=== PATIENT | female | born 1990 | race Caucasian/White ===

== ENCOUNTER 2021-11-18 10:08 | Emergency (ER) | payer MEDICAID, SELFPAY ==
--- NOTE | ~2021-11-18 | US_ITS ---
EXAMINATION: US ABDOMEN LIMITED CLINICAL INFORMATION: Right upper quadrant pain, history of gallstones. COMPARISON: 08/07/2017 abdominal ultrasound. TECHNIQUE: Real-time imaging of the right upper quadrant abdominal viscera. FINDINGS: PANCREAS: Visualized portions unremarkable. LIVER: Diffuse increased hepatic echotexture without focal abnormality. GALLBLADDER: Small echogenic gallstones measuring up to 1.4 cm. No mural thickening or pericholecystic fluid. COMMON BILE DUCT: Normal in caliber measuring 0.3 cm in diameter. RIGHT KIDNEY: 11.7 cm. Unremarkable. FREE FLUID: None. US/US abdomen limited IMPRESSION: 1. Hepatic steatosis appears to represent interval increase from the 2018 study. 2. Cholelithiasis without evidence for acute cholecystitis.
[2021-11-18 10:14] VITALS: BP 126/71; PULSE 95; RESP 16; TEMP 36.6; O2SAT 98; BMI 45.3
[2021-11-18 10:29] LABS: MANUAL DIFF FLAG NO
[2021-11-18 10:30] LABS: Basophils Percent Auto 0.4 % (0-2); Eosinophils Absolute Auto 0.1 X10*3/uL (0.0-0.4); Eosinophils Percent Auto 1.7 % (0-4); Hematocrit 37.1 % (37.0-47.0); Hemoglobin 12.1 g/dl (12.0-16.0); Imm Gran Abs Auto 0.02 X10*3/uL (0.00-0.03); Imm Gran Pct Auto 0.2 % (0.0-0.4); Lymphocytes Absolute Auto 1.1 X10*3/uL (1.2-4.9); Lymphocytes Percent Auto 13.3 % (20-40); Mean Corpuscular HGB Conc 32.6 g/dl (31.0-35.0); Mean Corpuscular Hemoglobin 28.5 pg (27.0-33.0); Mean Corpuscular Volume 87.5 fL (80.0-98.0); Mean Platelet Volume 9.4 fL (9.4-12.3); Monocytes Absolute Auto 0.4 X10*3/uL (0.1-1.2); Monocytes Percent Auto 5.2 % (2-11); Neutrophils Absolute Auto 6.4 x10*3/uL (2.0-8.3); Neutrophils Percent Auto 79.2 % (45-73); Platelet Count 358 X10*3/uL (160-400); Red Blood Count 4.24 X10*6/uL (4.20-5.50); Red Cell Distribution Width 13.5 % (11.0-16.0); White Blood Count 8.1 X10*3/uL (4.8-10.8)
[2021-11-18 10:46] LABS: Alanine Aminotransferase 14 U/L (0-31); Albumin Level 3.9 g/dL (3.5-5.0); Alkaline Phosphatase 66 U/L (39-117); Anion Gap 14 (12-20); Aspartate Amino Transferase 12 U/L (5-31); Bilirubin Direct < 0.2 mg/dL (0.0-0.5); Bilirubin Total 0.3 mg/dL (0.0-1.0); Blood Urea Nitrogen 9 mg/dL (9-16); Calcium 9.3 mg/dL (8.4-10.2); Carbon Dioxide 25 mmol/L (22-29); Chloride 106 mmol/L (96-108); Creatinine Clr Calc Pharmacy 128.4; Estimated Glomerular Filt Rate > 60; Glucose Random 94 mg/dL (60-115); Potassium 4.3 mmol/L (3.3-5.1); Sodium 141 mmol/L (135-145); Total Protein 6.6 g/dL (6.5-8.0)
== END 2021-11-18 14:08 | disposition left against medical advice (07) ==
PROVIDERS: Emergency Provider Emergency Medicine
DX: K80.80 Other cholelithiasis without obstruction (principal); Z79.899 Other long term (current) drug therapy
CPT/HCPCS: 36415; 76705; 80048; 80076; 85025; 99281; 99284

== ENCOUNTER 2021-11-19 16:34 | Emergency (ER) | payer MEDICAID, SELFPAY ==
[2021-11-19 17:26] VITALS: BP 133/79; PULSE 88; RESP 18; TEMP 36.1; O2SAT 100; BMI 45.3
== END 2021-11-19 20:28 | disposition left against medical advice (07) ==
LOC: HO.ED 20:22
PROVIDERS: Emergency Provider Emergency Medicine
DX: R10.12 Left upper quadrant pain (principal)
CPT/HCPCS: 99281

== ENCOUNTER 2022-08-26 14:39 | Emergency (ER) | payer MEDICAID, SELFPAY ==
--- NOTE | ~2022-08-26 | US_ITS ---
EXAMINATION: US FIRST TRIMESTER CLINICAL INFORMATION: Abdominal pain LMP: Not known Beta-hCG: Unknown COMPARISON: None available for current . TECHNIQUE: Transabdominal imaging was performed. FINDINGS: UTERUS AND INTRAUTERINE GESTATIONAL SAC: There is a single intrauterine gestational sac. CROWN-RUMP LENGTH (CRL) : 0.42 cm, estimated age 6 weeks and 1 day, estimated date of confinement is 04/20/2023 YOLK SAC: Identified HEART MOTION: 112 BPM. SUBCHORIONIC HEMORRHAGE: None OVARIES: Right: Normal corpus luteal cyst 2 x 2 x 2.3 cm. Left: Normal FREE FLUID: None OTHER FINDINGS: None US/US OB <= 14 weeks fetus IMPRESSION: 1. Single live intrauterine . 2. Estimated age 6 weeks and 1 day.
--- NOTE | ~2022-08-26 | US_ITS ---
EXAMINATION: US ABDOMEN LIMITED CLINICAL INFORMATION: Epigastric right upper quadrant pain. COMPARISON: None available. TECHNIQUE: Real-time imaging of the right upper quadrant abdominal viscera. FINDINGS: PANCREAS: Normal. LIVER: Normal. The liver is normal in size. The liver contour is normal. Parenchymal echogenicity is normal. No focal hepatic lesion. There is no intrahepatic biliary duct dilatation seen. GALLBLADDER: There are stones in the gallbladder. The gallbladder is physiologically distended without evidence of sludge, polyps, wall thickening or pericholecystic fluid. No evidence of cholecystitis. No gallbladder wall thickening or tenderness. No pericholecystic fluid. COMMON BILE DUCT: Normal in caliber measuring 0.3 cm in diameter. RIGHT KIDNEY: Normal. No hydronephrosis. No renal calculi or focal parenchymal lesions. The kidney measures 10.8 cm in maximum dimension. FREE FLUID: None. US/US abdomen limited IMPRESSION: Cholelithiasis without ultrasound evidence of acute cholecystitis.
[2022-08-26 15:17] VITALS: BP 109/58; PULSE 75; RESP 18; TEMP 36.2; O2SAT 100; BMI 34.4
--- NOTE | 2022-08-26 15:17 | ED_ITS ---
HPI - General Chief complaint: Abdominal Pain Stated complaint: knots/ tightness in abd / Time Seen by Provider: 08/26/22 19:09 Source: patient Mode of arrival: ambulatory Limitations: no limitations History of Present Illness HPI Narrative: Patient comes in the emergency room complaining of epigastric and right upper quadrant pain, nausea, no vomiting. Patient states that she took a home preg veronika test and it was positive. Patient is a approximately 6 weeks of gestational age. Patient denies any fever chills, no URI or UTI symptoms. Patient denies vaginal bleeding, spotting or fluid leakage Related Data Previous Rx's Medication Instructions Recorded nitrofurantoin 100 mg PO Q12H 7 days #14 caps 08/26/22 monohydrate/macrocrystals 100 mg capsule (Macrobid) ondansetron HCl 4 mg tablet 4 mg PO Q6H PRN nausea and 08/26/22 vomiting #14 tabs Allergies Allergy/AdvReac Type Severity Reaction Status Date / Time penicillin V Allergy Unknown hives Verified 08/26/22 15:20 Seafood Allergy Unknown anaphylaxis Uncoded 03/09/19 00:00 Review of Systems Review of Systems: Constitutional : No Weight loss, No Fever, No Chills, No Night Sweats, No Fatigue, No Malaise ENT/Mouth : No Hearing loss, No Ear Pain, No Nasal Congestion, No Sinus Pain, No Hoarseness, No sore throat, No Rhinorrhea, No Swallowing Difficulty Eyes: No Eye Pain, No Swelling, No Redness, No Foreign Body, No Discharge, No Vision Changes Cardiovascular : No Chest Pain, No SOB, No Dyspnea on Exertion, No Orthopnea, No Edema, No Palpitations Respiratory : No Cough, No Sputum, No Wheezing, No Smoke Exposure, No Dyspnea Gastrointestinal : Complaining of nausea, No Vomiting, No Diarrhea, No Constipation, complaining of epigastric and right upper quadrant pain, No Hematochezia, No Melena Genitourinary : no irregular bleeding, No Dysuria, No Urinary Frequency, No Hematuria, No Urinary Incontinence, No Urgency, No Flank Pain, No Urinary Flow Changes, No Hesitancy Musculoskeletal : No joint pain, No Myalgias, No Joint Swelling Skin : No Skin Lesions, No rash Neuro : No Weakness, No Numbness, No Paresthesias, No Loss of Consciousness, No Dizziness, No Headache Psych : No Anxiety/Panic, No Depression, No SI/HI/AH/VH, No Social Issues, Heme/Lymph: No Bruising, No Bleeding,No Lymphadenopathy Endocrine : No Polyuria, No Polydipsia, No Temperature Intolerance [facility] Social History Social History Advance Directives: No Advance Directives Information Provided: No Physical Exam Vital Signs: Vital Signs: Last Vital Signs Temp 98.9 F 08/26/22 17:40 Pulse 60 08/26/22 18:46 Resp 16 08/26/22 18:46 BP 117/73 08/26/22 18:46 Pulse Ox 98 08/26/22 18:46 O2 Del Method Room Air 08/26/22 18:46 BMI result Body Mass Index 34.4 Const: Other: Appearance: Alert. Oriented X3. No acute distress. Eyes: Pupils equal, round and reactive to light. ENT: Pharynx normal. Neck: Normal inspection. Neck supple. No lymph nodes noted. No crepitus CVS: Normal heart rate and rhythm. Pulses normal. Normal S1 and S2 Respiratory: No respiratory distress. Breath sounds normal. No Wheezing. No rales Abdomen: Soft and nontender. No rigidity. No distention. Skin: Skin warm and dry. Normal skin color. Normal skin turgor. Extremities: No lower extremity edema. No Lacerations. No Rash Neuro: Oriented X 3. No motor deficit. No sensory deficit. Moving all extremities. No slurred speech. CN 2 through 12 grossly intact Psych: calm, cooperative, normal affect Course Course Course Narrative: RME: 32yo F w/PMHx c/o upper abdominal cramping x today w/nausea, admits to +home test on 08/14/22. LMP ?beginning of June. Denies vomiting, vaginal bleeding/discharge, fever Abdomen soft + epigastric/RUQ tenderness, no rebound or guarding Labs, UA, pelvic and limited abdomen ultrasound ordered Full HPI, ROS and PE to be performed by primary ED provider. Medical Decision Making Medical Decision Making [facility] Narrative: -when patient arrived, acute cholecystitis versus ectopic versus panc reatitis was considered, therefore admission was considered. -patient reported to have abdominal pain, epigastric and right upper quadrant. When I did the physical exam on the patient, patient did not have any abdominal pain at all. -ultrasound of the gallbladder negative for acute cholecystitis. - ultrasound shows a single live intrauterine at an estimated age of 6 weeks and 1 day -I reviewed patient's labs, patient has a UTI. -patient has a life intrauterine pregnancies equivalent of 6 weeks and 1 day, abdominal ultrasound negative for acute cholecystitis Differential Diagnosis Differential Diagnoses: The differential diagnosis associated with the presentation includes (Cholecystitis, pancreatitis, ectopic , UTI) Admission/Observation Consideration of admission/observation: Escalation of care including admission/observation considered Lab Data MDM Lab Attestation statement: I reviewed the patient's lab results. (Patient's urinalysis positive for UTI, negative for liver inflammation) 08/26/22 15:48 08/26/22 15:48 Labs: Lab Results 08/26/22 08/26/22 08/26/22 Range/Units 15:48 15:48 15:48 WBC 6.4 (4.8-10.8) X10*3/uL RBC 4.23 (4.20-5.50) X10*6/uL Hgb 12.6 (12.0-16.0) g/dl Hct 37.5 (37.0-47.0) % MCV 88.7 (80.0-98.0) fL MCH 29.8 (27.0-33.0) pg MCHC 33.6 (31.0-35.0) g/dl RDW 13.8 (11.0-16.0) % Plt Count 259 D (160-400) X10*3/uL MPV 10.5 (9.4-12.3) fL Immature Gran % (Auto) 0.3 (0.0-0.4) % Neut % (Auto) 74.1 H (45-73) % Lymph % (Auto) 18.6 L (20-40) % [place] % (Auto) 5.5 (2-11) % Eos % (Auto) 1.2 (0-4) % Baso % (Auto) 0.3 (0-2) % Lymph # (Auto) 1.2 (1.2-4.9) X10*3/uL [place] # (Auto) 0.4 (0.1-1.2) X10*3/uL Eos # (Auto) 0.1 (0.0-0.4) X10*3/uL Baso # (Auto) 0.0 (0.0-0.2) X10*3/uL Abs Immat Gran (auto) 0.02 (0.00-0.03) X10*3/uL Absolute Neuts (auto) 4.8 (2.0-8.3) x10*3/uL Absolute Nucleated RBC 0.000 (0.0-0.012) X10*3/uL Nucleated RBC % (auto) 0.0 (0.0-0.2) /100WBC Sodium 137 (135-145) mmol/L Potassium 4.0 (3.3-5.1) mmol/L Chloride 108 (96-108) mmol/L Carbon Dioxide 22 (22-29) mmol/L Anion Gap 11 L (12-20) BUN 6 L (9-16) mg/dL Creatinine 0.69 (0.5-1.4) mg/dL Estim Creat Clear Calc 111.9 Estimated GFR > 60 Random Glucose 103 (60-115) mg/dL Calcium 9.6 (8.4-10.2) mg/dL Magnesium 1.8 (1.6-2.6) mg/dL Total Bilirubin 0.9 (0.0-1.0) mg/dL Direct Bilirubin 0.3 (0.0-0.5) mg/dL AST 13 (5-31) U/L ALT 9 (0-31) U/L Alkaline Phosphatase 44 (39-117) U/L Total Protein 6.4 L (6.5-8.0) g/dL Albumin 3.8 (3.5-5.0) g/dL Lipase 44 (8-78) U/L Beta HCG, Quant 81635 mIU/mL Urine Color Urine Appearance Urine pH (5.0-9.0) Ur Specific [place] (1.005-1.025) Urine Protein (Neg-Trace) mg/dL Urine Glucose (UA) (Negative) mg/dL Urine Ketones (Negative) mg/dL Urine Blood (Negative) Urine Nitrite (Negative) Ur Leukocyte Esterase (Negative) Urine RBC (0-2) /HPF Urine WBC (0-5) /HPF Ur Squamous Epith Cells (0-2) /HPF Urine Bacteria (None Seen) Hyaline Casts (0-2) /LPF Urine Yeast Urine Test (NEGATIVE) 08/26/22 08/26/22 Range/Units 15:48 15:48 WBC (4.8-10.8) X10*3/uL RBC (4.20-5.50) X10*6/uL Hgb (12.0-16.0) g/dl Hct (37.0-47.0) % MCV (80.0-98.0) fL MCH (27.0-33.0) pg MCHC (31.0-35.0) g/dl RDW (11.0-16.0) % Plt Count (160-400) X10*3/uL MPV (9.4-12.3) fL Immature Gran % (Auto) (0.0-0.4) % Neut % (Auto) (45-73) % Lymph % (Auto) (20-40) % [place] % (Auto) (2-11) % Eos % (Auto) (0-4) % Baso % (Auto) (0-2) % Lymph # (Auto) (1.2-4.9) X10*3/uL [place] # (Auto) (0.1-1.2) X10*3/uL Eos # (Auto) (0.0-0.4) X10*3/uL Baso # (Auto) (0.0-0.2) X10*3/uL Abs Immat Gran (auto) (0.00-0.03) X10*3/uL Absolute Neuts (auto) (2.0-8.3) x10*3/uL Absolute Nucleated RBC (0.0-0.012) X10*3/uL Nucleated RBC % (auto) (0.0-0.2) /100WBC Sodium (135-145) mmol/L Potassium (3.3-5.1) mmol/L Chloride (96-108) mmol/L Carbon Dioxide (22-29) mmol/L Anion Gap (12-20) BUN (9-16) mg/dL Creatinine (0.5-1.4) mg/dL Estim Creat Clear Calc Estimated GFR Random Glucose (60-115) mg/dL Calcium (8.4-10.2) mg/dL Magnesium (1.6-2.6) mg/dL Total Bilirubin (0.0-1.0) mg/dL Direct Bilirubin (0.0-0.5) mg/dL AST (5-31) U/L ALT (0-31) U/L Alkaline Phosphatase (39-117) U/L Total Protein (6.5-8.0) g/dL Albumin (3.5-5.0) g/dL Lipase (8-78) U/L Beta HCG, Quant mIU/mL Urine Color Yellow Urine Appearance Cloudy Urine pH 5.5 (5.0-9.0) Ur Specific [place] 1.025 (1.005-1.025) Urine Protein Trace (Neg-Trace) mg/dL Urine Glucose (UA) Negative (Negative) mg/dL Urine Ketones 80 (Negative) mg/dL Urine Blood Trace H (Negative) Urine Nitrite Negative (Negative) Ur Leukocyte Esterase Large (3+) H (Negative) Urine RBC 3-5 H (0-2) /HPF Urine WBC >50 H (0-5) /HPF Ur Squamous Epith Cells >20 (0-2) /HPF Urine Bacteria 4+ (None Seen) Hyaline Casts 3-5 (0-2) /LPF Urine Yeast Present Urine Test POSITIVE H (NEGATIVE) Independent Interpretation I performed an independent interpretation of an: Ultrasound (My interpretation of pelvic ultrasound: Intrauterine present) Radiology Impression Discussion of test interpretation with radiology: I have reviewed the radiologist's reading. Radiologist Impression: FINDINGS:? UTERUS AND INTRAUTERINE GESTATIONAL SAC: There is a single intrauterine gestational sac. CROWN-RUMP LENGTH (CRL) : 0.42 cm, estimated age 6 weeks and 1 day, estimated date of confinement is 04/20/2023 YOLK SAC: Identified HEART MOTION: 112 BPM. SUBCHORIONIC HEMORRHAGE: None OVARIES: Right: Normal corpus luteal cyst 2 x 2 x 2.3 cm. Left: Normal FREE FLUID: None OTHER FINDINGS: None US/US OB <= 14 weeks fetus IMPRESSION: 1. Single live intrauterine . ? 2. Estimated age 6 weeks and 1 day. FINDINGS: PANCREAS: Normal. LIVER: Normal. The liver is normal in size. The liver contour is normal. Parenchymal echogenicity is normal. No focal hepatic lesion. There is no intrahepatic biliary duct dilatation seen. GALLBLADDER: There are stones in the gallbladder. The gallbladder is physiologically distended without evidence of sludge, polyps, wall thickening or pericholecystic fluid. No evidence of cholecystitis. No gallbladder wall thickening or tenderness. No pericholecystic fluid. COMMON BILE DUCT: Normal in caliber measuring 0.3 cm in diameter. RIGHT KIDNEY: Normal. No hydronephrosis. No renal calculi or focal parenchymal lesions. The kidney measures 10.8 cm in maximum dimension. FREE FLUID: None. US/US abdomen limited IMPRESSION: ? Cholelithiasis without ultrasound evidence of acute cholecystitis. Critical Care Time Critical Care Time Critical Care Time: No Discharge Plan Discharge Clinical Impression: Urinary tract infection during , Abdominal pain, Nausea Patient Disposition: Home, Self-Care Instructions: Abdominal Pain (ED) Additional Instructions: Please follow-up with your primary care physician tomorrow. If you have any worsening or new symptoms, please return to the emergency room or call 911 Prescriptions: New nitrofurantoin monohyd/m-cryst [Macrobid] 100 mg capsule 100 mg PO Q12H 7 Days Qty: 14 0RF Rx Instructions: must administer with a meal/food ondansetron HCl 4 mg tablet 4 mg PO Q6H PRN (Reason: nausea and vomiting) Qty: 14 0RF Interventions: ED Discharge Assessment Last Done: 08/26/22 17:09
--- NOTE | 2022-08-26 15:54 | MHC.EDTECH ---
PATIENT BLOOD DRAWN AND SENT TO LAB .
[2022-08-26 15:55] LABS: MANUAL DIFF FLAG NO
[2022-08-26 15:56] LABS: Basophils Percent Auto 0.3 % (0-2); Eosinophils Absolute Auto 0.1 X10*3/uL (0.0-0.4); Eosinophils Percent Auto 1.2 % (0-4); Hematocrit 37.5 % (37.0-47.0); Hemoglobin 12.6 g/dl (12.0-16.0); Imm Gran Abs Auto 0.02 X10*3/uL (0.00-0.03); Imm Gran Pct Auto 0.3 % (0.0-0.4); Lymphocytes Absolute Auto 1.2 X10*3/uL (1.2-4.9); Lymphocytes Percent Auto 18.6 % (20-40); Mean Corpuscular HGB Conc 33.6 g/dl (31.0-35.0); Mean Corpuscular Hemoglobin 29.8 pg (27.0-33.0); Mean Corpuscular Volume 88.7 fL (80.0-98.0); Mean Platelet Volume 10.5 fL (9.4-12.3); Monocytes Absolute Auto 0.4 X10*3/uL (0.1-1.2); Monocytes Percent Auto 5.5 % (2-11); Neutrophils Absolute Auto 4.8 x10*3/uL (2.0-8.3); Neutrophils Percent Auto 74.1 % (45-73); Platelet Count 259 X10*3/uL (160-400); Red Blood Count 4.23 X10*6/uL (4.20-5.50); Red Cell Distribution Width 13.8 % (11.0-16.0); White Blood Count 6.4 X10*3/uL (4.8-10.8)
[2022-08-26 15:57] LABS: Appearance Urine Cloudy; Color Urine Yellow; Glucose Urine UA Negative (Negative); Leukocyte Esterase Urine Large (3+) (Negative); Nitrite Urine Negative (Negative); PH 5.5 (5.0-9.0); Specific Gravity - Urine 1.025 (1.005-1.025); UMIC TRIGGER UACC YES; UPreg QC Valid YES; Urine Blood Trace (Negative); Urine Ketones 80 mg/dL (Negative); Urine Pregnancy POSITIVE (NEGATIVE); Urine Protein Trace mg/dL (Neg-Trace)
[2022-08-26 16:06] LABS: Bacteria Urine 4+ (None Seen); Squamous Epithelial Cell Urine >20 /HPF (0-2); UACC Culture Trigger YES; WBC Urine >50 /HPF (0-5)
[2022-08-26 16:12] LABS: Alanine Aminotransferase 9 U/L (0-31); Albumin Level 3.8 g/dL (3.5-5.0); Alkaline Phosphatase 44 U/L (39-117); Anion Gap 11 (12-20); Aspartate Amino Transferase 13 U/L (5-31); Bilirubin Direct 0.3 mg/dL (0.0-0.5); Bilirubin Total 0.9 mg/dL (0.0-1.0); Blood Urea Nitrogen 6 mg/dL (9-16); Calcium 9.6 mg/dL (8.4-10.2); Carbon Dioxide 22 mmol/L (22-29); Chloride 108 mmol/L (96-108); Creatinine Clr Calc Pharmacy 111.9; Estimated Glomerular Filt Rate > 60; Glucose Random 103 mg/dL (60-115); Lipase 44 U/L (8-78); Magnesium 1.8 mg/dL (1.6-2.6); Sodium 137 mmol/L (135-145); Total Protein 6.4 g/dL (6.5-8.0)
[2022-08-26 16:57] LABS: HCG Quantitative 38643 mIU/mL
[2022-08-26 17:12] VITALS: BP 113/61; PULSE 71; RESP 18; O2SAT 99
[2022-08-26 17:40] VITALS: BP 104/61; PULSE 59; RESP 15; TEMP 37.2; O2SAT 99
[2022-08-26 18:46] VITALS: BP 117/73; PULSE 60; RESP 16; O2SAT 98
== END 2022-08-26 19:39 | disposition home or self-care (01) ==
PROVIDERS: Physician Assistant; Emergency Provider Emergency Medicine
DX: O23.41 Unspecified infection of urinary tract in pregnancy, first trimester (principal); R11.0 Nausea; O26.891 Other specified pregnancy related conditions, first trimester; Z3A.00 Weeks of gestation of pregnancy not specified
CPT/HCPCS: 36415; 76705; 76801; 80048; 80076; 81001; 81025; 83690; 83735; 84702; 85025; 87086; 99284

== ENCOUNTER 2023-02-01 21:32 | Emergency (ER) | payer MEDICAID, SELFPAY ==
[2023-02-01 21:41] VITALS: BMI 32.1
[2023-02-01 21:45] VITALS: O2SAT 98
--- NOTE | 2023-02-01 21:54 | ED_ITS ---
HPI - URI/Sore Throat General Chief Complaint: Upper Respiratory Symptoms Stated Complaint: CONGESTION, PAIN WITH DEEP BREATH, 29 WEEKS PREG Time Seen by Provider: 02/01/23 21:48 Source: patient Mode of arrival: EMS Limitations: no limitations History of Present Illness HPI Narrative: Patient is a 32-year-old female is a , reportedly 29 weeks with estimated due date 04/17/2023 followed by [facility], who presents to the emergency department via EMS for evaluation of upper respiratory symptoms. Reports symptom onset yesterday including nasal congestion, cough, fatigue. Denies fevers, chills, headache, neck pain, neck stiffness, chest pain, shortness of breath, difficulty breathing, nausea, vomiting, abdominal pain. Denies decreased movement, denies related concerns, denies discharge or vaginal bleeding. Related Data Previous Rx's Medication Instructions Recorded nitrofurantoin 100 mg PO Q12H 7 days #14 caps 08/26/22 monohydrate/macrocrystals 100 mg capsule (Macrobid) ondansetron HCl 4 mg tablet 4 mg PO Q6H PRN nausea and 08/26/22 vomiting #14 tabs Allergies Allergy/AdvReac Type Severity Reaction Status Date / Time penicillin V Allergy Unknown hives Verified 02/01/23 21:43 Seafood Allergy Unknown anaphylaxis Uncoded 02/01/23 21:43 Review of Systems Review of Systems: Yes all other systems are reviewed and are negative [facility] Past Medical History Attestation statement: The following information was validated with the patient. Source: old records reviewed Social History Social History Smoked in Last 30 Days: No Use of substances other than those prescribed or required for medical reasons: No Advance Directives: No Advance Directives Information Provided: No Physical Exam Vital Signs: Vital Signs: Last Vital Signs Temp 98.2 F 02/01/23 22:13 Pulse 97 02/01/23 22:14 Resp 18 02/01/23 22:14 BP 103/60 02/01/23 22:14 Pulse Ox 98 02/01/23 22:14 O2 Del Method Room Air 02/01/23 22:14 BMI result Body Mass Index 32.1 Appearance: Alert.?Oriented to person, place and time. No acute distress.?Normal affect. Eyes: Pupils equal, round and reactive to light.? ENT: Pharynx normal.?? Neck: Normal inspection.? Neck supple.??No cervical lymphadenopathy CVS: Heart sounds normal. Normal heart rate and rhythm.? Pulses normal.?? Respiratory: No respiratory distress.? Lung sounds clear to auscultation bilaterally?? Abdomen: Soft and non-tender. Normoactive bowel sounds. Skin: Skin warm and dry.? Normal skin color.? ?? Extremities: No lower extremity edema.? No calf ttp? Neuro: Moves all extremities spontaneously. Sensation intact bilaterally. CN II- XII intact. No focal neuro deficits. Ambulates with normal steady gait. Medical Decision Making Medical Decision Making [facility] Narrative: Patient is a 32-year-old female currently 29 weeks with no reported past medical history presenting to the emergency department for evaluation of URI symptoms. COVID-19/influenza/RSV testing is negative. At this time history and physical exam not consistent with ACS/PE/pneumonia. Would defer chest x-ray imaging as she is currently , and clinically have low suspicion for pneumonia. Well-appearing, nontoxic, afebrile, no tachycardia or tachypnea/hypoxia. Speaking clear full sentences, ambulatory with steady gait. Discussed conservative treatment including rest, hydration, Tylenol as needed for fever and body aches, saline nasal spray, humidifier, tea with honey. Advised to follow-up with primary care provider as needed, OB as scheduled, di scussed reasons to return back to the emergency department. All questions were answered. Patient discharged home in stable condition. Differential Diagnosis Differential Diagnoses: The differential diagnosis associated with the presentation includes (As noted above) Lab Data [facility] Lab Attestation statement: I reviewed the patient's lab results. (As noted above) Labs: Lab Results 02/01/23 Range/Units 21:47 Influenza Type A (PCR) NEGATIVE (Negative) Influenza Type B (PCR) NEGATIVE (Negative) RSV RNA Qual (PCR) NEGATIVE (Negative) SARS-CoV-2 RNA (RT-PCR) NEGATIVE (Negative) Independent Historian Clinical information obtained from an independent historian. History obtained from or confirmed by: Spouse and EMS External Record Review External record reviewed: Prior outpatient labs Tests considered The following testing was considered but not selected: CXR as noted above Prescription Management I considered prescription management with: Antibiotic (Suspect viral etiology, no indication for antibiotics at this time) Discharge Plan Discharge Clinical Impression: Upper respiratory infection Patient Disposition: Home, Self-Care Instructions: Upper Respiratory Infection (ED) Additional Instructions: Be sure to rest, stay well hydrated drinking plenty of fluids, eat small frequent meals. Tylenol can be used as needed for fever/pain. Saline nasal spray, humidifier may be helpful for nasal congestion. You may return to the emergency department with any new or worsening symptoms or concerns. Follow-up with your primary care provider as needed. Prescriptions: No Action nitrofurantoin monohyd/m-cryst [Macrobid] 100 mg capsule 100 mg PO Q12H 7 Days Qty: 14 0RF Rx Instructions: must administer with a meal/food ondansetron HCl 4 mg tablet 4 mg PO Q6H PRN (Reason: nausea and vomiting) Qty: 14 0RF Referrals: Physician,Unknown J [Primary Care Provider] -
[2023-02-01 22:13] VITALS: BP 103/60; PULSE 81; RESP 18; TEMP 36.8; O2SAT 98
[2023-02-01 22:14] VITALS: BP 103/60; PULSE 97; RESP 18; O2SAT 98
[2023-02-01 22:29] LABS: Influenza A PCR NEGATIVE (Negative); Influenza B PCR NEGATIVE (Negative); Resp Syncy Virus RNA Qual PCR NEGATIVE (Negative); SARS COV2 PCR INHOUSE NEGATIVE (Negative)
[2023-02-01 23:04] VITALS: BP 114/66; PULSE 82; RESP 16; O2SAT 98
== END 2023-02-01 23:05 | disposition home or self-care (01) ==
PROVIDERS: Physician Assistant Medical; Emergency Provider Emergency Medicine
DX: O99.513 Diseases of the respiratory system complicating pregnancy, third trimester (principal); J06.9 Acute upper respiratory infection, unspecified; Z3A.29 29 weeks gestation of pregnancy; Z20.822 Contact with and (suspected) exposure to COVID-19; Z20.828 Contact with and (suspected) exposure to other viral communicable diseases
CPT/HCPCS: 0241U; 99283; 99284

== ENCOUNTER 2023-05-13 01:35 | Emergency (ER) | payer SELFPAY ==
--- NOTE | ~2023-05-13 | XR_ITS ---
EXAMINATION: XR ABDOMEN KUB CLINICAL INDICATION: Constipation. COMPARISON: None available. TECHNIQUE: AP view of the abdomen. FINDINGS: The bowel gas pattern is normal with no evidence of ileus or obstruction. There is retained stool. No unusual soft tissue calcifications are noted. The bones are unremarkable. XR/XR KUB IMPRESSION: 1. Nonobstructive bowel gas pattern. 2. Retained stool.
[2023-05-13 01:43] VITALS: BP 140/77; PULSE 94; RESP 17; TEMP 36.6; O2SAT 99; BMI 26.7
[2023-05-13 04:34] VITALS: BP 132/87; PULSE 64; RESP 16; TEMP 36.9; O2SAT 100
--- NOTE | 2023-05-13 05:18 | ED.ABDPAIN ---
HPI - Abdominal Pain General Chief Complaint: Abdominal Pain Stated Complaint: Constipated Time Seen by Provider: 05/13/23 05:18 Source: patient Mode of arrival: ambulatory Limitations: no limitations History of Present Illness HPI narrative: Patient comes here for 3 days of constipation took MiraLax once only without much relief history of similar problem last year when she was admitted. No vomiting not on any narcotics Related Data Previous Rx's Medication Instructions Recorded nitrofurantoin 100 mg PO Q12H 7 days #14 caps 08/26/22 monohydrate/macrocrystals 100 mg capsule (Macrobid) ondansetron HCl 4 mg tablet 4 mg PO Q6H PRN nausea and 08/26/22 vomiting #14 tabs bisacodyl 5 mg tablet,delayed 10 mg (2 x 5 mg) PO BEDTIME PRN 05/13/23 release (Dulcolax (bisacodyl)) constipation #30 tabs Allergies Allergy/AdvReac Type Severity Reaction Status Date / Time penicillin V Allergy Unknown hives Verified 02/01/23 21:43 Seafood Allergy Unknown anaphylaxis Uncoded 02/01/23 21:43 Review of Systems Review of Systems Yes all other systems are reviewed and are negative [facility] Social History Social History Smoked in Last 30 Days: Yes Use of substances other than those prescribed or required for medical reasons: Yes Substance Use Type: Marijuana Advance Directives: No Advance Directives Information Provided: Yes Patient : No Physical Exam ED Vital Signs: Vital Signs - 24 hr 05/13/23 01:43 05/13/23 04:34 Temperature 97.8 F 98.5 F Pulse Rate 94 64 Respiratory Rate 17 16 Blood Pressure 140/77 H 132/87 Pulse Oximetry 99 100 Oxygen Delivery Method Room Air Room Air BMI result Body Mass Index 26.7 Appearance: Alert. Oriented X3. No acute distress. ENT: Pharynx normal. Oral Mucosa moist Neck: Normal inspection. Neck supple. CVS: Normal heart rate and rhythm. Pulses normal. Respiratory: No respiratory distress. Equal air entry bilateral, no wheezing/rales/rhonchi Abdomen: Soft and nontender. Bowel sounds are present, no mass palpable, no CVA tenderness Skin: Skin warm and dry. Normal skin color. Normal skin turgor. Extremities: No lower extremity edema. Neuro: Oriented X 3. Medical Decision Making Independent Interpretation I performed an independent interpretation of an: Plain X-Ray Radiology Impression Discussion of test interpretation with radiology: I have reviewed the radiologist's reading. Medications Administered Discontinued Medications Generic Name Dose Route Start Last Admin Trade Name Freq PRN Reason Stop Dose Admin Bisacodyl 10 mg 05/13/23 05:18 05/13/23 06:01 Bisacodyl 5 Mg Tablet.Dr PO 05/13/23 05:19 10 mg ONCE ONE Administration Dicyclomine HCl 20 mg 05/13/23 06:08 05/13/23 06:19 Dicyclomine Hcl 10 Mg Capsule PO 05/13/23 06:09 20 mg ONCE ONE Administration Magnesium Hydroxide 30 ml 05/13/23 05:18 05/13/23 06:01 Milk Of Magnesia 30 Ml Oral.Susp PO 05/13/23 05:19 30 ml ONCE ONE Administration Discharge Plan Discharge Clinical Impression: Constipation Patient Disposition: Home, Self-Care Instructions: Constipation (ED) Additional Instructions: Drink plenty of fluid Take MiraLax and Dulcolax as prescribed for severe constipation Follow-up with PCP Prescriptions: New bisacodyl [Dulcolax (bisacodyl)] 5 mg tablet,delayed release (DR/EC) 10 mg PO BEDTIME PRN (Reason: constipation) Qty: 30 0RF No Action nitrofurantoin monohyd/m-cryst [Macrobid] 100 mg capsule 100 mg PO Q12H 7 Days Qty: 14 0RF Rx Instructions: must administer with a meal/food ondansetron HCl 4 mg tablet 4 mg PO Q6H PRN (Reason: nausea and vomiting) Qty: 14 0RF Interventions: ED Discharge Assessment Last Done: 05/13/23 06:46 Discharge Date/Time: 05/13/23 06:47
[2023-05-13] MEDS: bisacodyL 5 MG TABLET.DR 10 MG PO (06:01)
[2023-05-13] MEDS: Milk of Magnesia 30 ML ORAL.SUSP PO (06:01)
[2023-05-13] MEDS: Dicyclomine HCl 10 MG CAPSULE 20 MG PO (06:19)
--- NOTE | 2023-05-13 06:43 | PC.NURSE ---
pt medicated according to apr. pt requested wheelchair transport to waiting room to await ride home. pt provided with discharge packet. pt verbalized understanding of discharge plan
== END 2023-05-13 06:47 | disposition home or self-care (01) ==
PROVIDERS: Emergency Provider Internal Medicine; PCP Internal Medicine
DX: K59.00 Constipation, unspecified (principal); R10.30 Lower abdominal pain, unspecified
CPT/HCPCS: 74018; 99283; 99284

== ENCOUNTER 2023-06-28 13:39 | Emergency (ER) | payer SELFPAY ==
[2023-06-28 14:00] VITALS: BP 131/71; PULSE 86; RESP 16; TEMP 36.1; O2SAT 99; BMI 25.6
--- NOTE | 2023-06-28 14:00 | ED_ITS ---
HPI - General Adult General Chief complaint: Dental/Oral Stated complaint: Dental pain/R ear pain Related Data Previous Rx's ?Medication ?Instructions ?Recorded nitrofurantoin 100 mg PO Q12H 7 days #14 caps 08/26/22 monohydrate/macrocrystals 100 mg capsule (Macrobid) ondansetron HCl 4 mg tablet 4 mg PO Q6H PRN nausea and 08/26/22 vomiting #14 tabs bisacodyl 5 mg tablet,delayed 10 mg (2 x 5 mg) PO BEDTIME PRN 05/13/23 release (Dulcolax (bisacodyl)) constipation #30 tabs acetaminophen 325 mg tablet 650 mg (2 x 325 mg) PO Q6H PRN 08/02/23 (Tylenol) pain #60 tabs acetaminophen 325 mg tablet 650 mg (2 x 325 mg) PO Q6H PRN 08/07/23 (Tylenol) fever or pain #60 tabs Allergies Allergy/AdvReac Type Severity Reaction Status Date / Time penicillin V Allergy Unknown hives Verified 08/06/23 23:02 Seafood Allergy Unknown anaphylaxis Uncoded 02/01/23 21:43 [facility] Past Medical History Medical History No pertinent past medical history Social History Social History Smoked in Last 30 Days: No Substance Use Type: Marijuana Advance Directives: No Advance Directives Information Provided: Yes Do you have a plan to hurt others: No Plan Physical Exam ED Vital Signs: BMI result Body Mass Index 25.6 Course Course Course Narrative: This is an RME: Additional HPI, ROS, PE not included below will be deferred to primary provider. 32 yo f presents with r sided dental pain and ear pain. Denies recent dental procedures. Discharge Plan Discharge Clinical Impression: Eloped from emergency department Patient Disposition: Left W/O Completing Treatment Prescriptions: No Action nitrofurantoin monohyd/m-cryst [Macrobid] 100 mg capsule 100 mg PO Q12H 7 Days Qty: 14 0RF Rx Instructions: must administer with a meal/food ondansetron HCl 4 mg tablet 4 mg PO Q6H PRN (Reason: nausea and vomiting) Qty: 14 0RF bisacodyl [Dulcolax (bisacodyl)] 5 mg tablet,delayed release (DR/EC) 10 mg PO BEDTIME PRN (Reason: constipation) Qty: 30 0RF acetaminophen [Tylenol] 325 mg tablet 650 mg PO Q6H PRN (Reason: pain) Qty: 60 0RF acetaminophen [Tylenol] 325 mg tablet 650 mg PO Q6H PRN (Reason: fever or pain) Qty: 60 0RF Discharge Date/Time: 06/28/23 20:25
== END 2023-06-28 20:25 | disposition left against medical advice (07) ==
LOC: HO.ED 20:27
PROVIDERS: Emergency Provider Emergency Medicine; PCP Internal Medicine
DX: K08.89 Other specified disorders of teeth and supporting structures (principal); H92.01 Otalgia, right ear
CPT/HCPCS: 99281

== ENCOUNTER 2023-08-02 15:26 | Emergency (ER) | payer MEDICAID, SELFPAY ==
--- NOTE | ~2023-08-02 | US_ITS ---
EXAMINATION: US OBSTETRICAL ULTRASOUND CLINICAL INFORMATION: Pelvic pain COMPARISON: None available. LMP: 06/17/2023. Gestational age by maternal dates is 6 weeks 4 days. Estimated date of delivery by maternal dates is 03/23/2024. TECHNIQUE: Routine transabdominal and transvaginal imaging of pelvis is performed. FINDINGS: There is a single intrauterine gestational sac with visible yolk sac, embryo/fetus, and cardiac activity. There is no significant subchorionic hemorrhage or hematoma. HR: 129 beats per minute. CRL (crown rump length): 0.65 cm (6 weeks 4 days +/- 4 days). LATRICE (estimated date of delivery): 03/23/2024 +/- 4 days. MATERNAL ADNEXA: The right maternal ovary measures 3.3 x 2.7 x 3.2 cm. There is a complex cyst measuring 2.5 x 2.1 x 2.6 cm The left maternal ovary measures 1.8 x 2.3 x 2.5 cm. No focal lesion seen There is no significant maternal adnexal mass. No maternal pelvic ascites. US/US OB pelvic and transvaginal IMPRESSION: 1. Single intrauterine gestation with ultrasound gestational age of 6 weeks and 4 days +/- 4 days. 2. Estimated date of delivery is 03/23/2024 +/- 4 days. It is concordant to just distal age corresponds to menstrual dates. 3. Complex left ovarian cyst measuring 2.6 cm.
[2023-08-02 15:53] VITALS: BP 114/63; PULSE 74; RESP 16; TEMP 36.4; O2SAT 100; BMI 19.4
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
[2023-08-02 17:44] LABS: MANUAL DIFF FLAG NO
[2023-08-02 17:46] LABS: Basophils Percent Auto 0.6 % (0-2); Eosinophils Absolute Auto 0.1 X10*3/uL (0.0-0.4); Eosinophils Percent Auto 1.7 % (0-4); Hematocrit 36.4 % (37.0-47.0); Hemoglobin 12.4 g/dl (12.0-16.0); Imm Gran Abs Auto 0.01 X10*3/uL (0.00-0.03); Imm Gran Pct Auto 0.2 % (0.0-0.4); Lymphocytes Absolute Auto 1.6 X10*3/uL (1.2-4.9); Lymphocytes Percent Auto 28.8 % (20-40); Mean Corpuscular HGB Conc 34.1 g/dl (31.0-35.0); Mean Corpuscular Volume 88.1 fL (80.0-98.0); Mean Platelet Volume 10.2 fL (9.4-12.3); Monocytes Absolute Auto 0.4 X10*3/uL (0.1-1.2); Monocytes Percent Auto 7.8 % (2-11); Neutrophils Absolute Auto 3.3 x10*3/uL (2.0-8.3); Neutrophils Percent Auto 60.9 % (45-73); Platelet Count 304 X10*3/uL (160-400); Red Blood Count 4.13 X10*6/uL (4.20-5.50); Red Cell Distribution Width 14.2 % (11.0-16.0); White Blood Count 5.4 X10*3/uL (4.8-10.8)
[2023-08-02 18:13] LABS: Alanine Aminotransferase 7 U/L (0-31); Albumin Level 3.8 g/dL (3.5-5.0); Alkaline Phosphatase 51 U/L (39-117); Anion Gap 10 (12-20); Aspartate Amino Transferase 11 U/L (5-31); Bilirubin Total 0.3 mg/dL (0.0-1.0); Blood Urea Nitrogen 12 mg/dL (9-16); Calcium 9.7 mg/dL (8.4-10.2); Carbon Dioxide 25 mmol/L (22-29); Chloride 106 mmol/L (96-108); Creatinine Clr Calc Pharmacy 85.2; Estimated Glomerular Filt Rate > 60; Glucose Random 84 mg/dL (60-115); Lipase 32 U/L (8-78); Potassium 3.9 mmol/L (3.3-5.1); Sodium 137 mmol/L (135-145); Total Protein 6.5 g/dL (6.5-8.0)
[2023-08-02 18:44] LABS: HCG Quantitative 29722 mIU/mL
[2023-08-02 21:11] LABS: Appearance Urine Clear; Color Urine Yellow; Glucose Urine UA Negative (Negative); Leukocyte Esterase Urine Negative (Negative); Nitrite Urine Negative (Negative); Specific Gravity - Urine 1.015 (1.005-1.025); Urine Blood Negative (Negative); Urine Ketones Negative (Negative); Urine Protein Negative (Neg-Trace)
[2023-08-02 21:12] LABS: Bacteria Urine None Seen (None Seen); Hyaline Casts Urine 0-2 /LPF (0-2); RBC Urine 0-2 /HPF (0-2); Squamous Epithelial Cell Urine 0-2 /HPF (0-2); WBC Urine 0-5 /HPF (0-5)
[2023-08-02 21:15] VITALS: BP 107/58; PULSE 64; RESP 17; TEMP 36.7; O2SAT 98
[2023-08-02 22:08] VITALS: BP 107/58; PULSE 64; RESP 17; TEMP 36.7; O2SAT 98
== END 2023-08-02 22:13 | disposition home or self-care (01) ==
PROVIDERS: Physician Assistant; Emergency Provider Internal Medicine; PCP Internal Medicine
DX: Z04.1 Encounter for examination and observation following transport accident (principal); O26.891 Other specified pregnancy related conditions, first trimester; M54.6 Pain in thoracic spine; Z3A.01 Less than 8 weeks gestation of pregnancy
CPT/HCPCS: 36415; 76801; 76817; 80053; 81001; 83690; 84702; 85025; 99283; 99284

== ENCOUNTER 2023-08-06 22:41 | Emergency (ER) | payer MEDICAID, SELFPAY ==
[2023-08-06 22:59] VITALS: BP 116/63; PULSE 78; RESP 18; TEMP 36.5; O2SAT 100; BMI 27.7
[2023-08-07 02:00] VITALS: BP 101/58; PULSE 71; RESP 16; TEMP 36.9; O2SAT 99
--- NOTE | 2023-08-07 02:24 | ED_ITS ---
HPI - Fall General Chief Complaint: Fall Stated Complaint: 7 weeks , feel down stairs Time Seen by Provider: 08/07/23 01:58 Source: patient Mode of arrival: ambulatory Limitations: no limitations History of Present Illness ED Provider: FARIBA GAMBINO Narrative: 33 yo female with no sig PMH here with c/o falling on down 4 stairs now has pain in tailbone area but no b/b incontinence no saddle anesthesia hurts to sit on it. No trauma to abdomen no bleeding. came thinking about getting xrays. No head injury or head strike complaint: fall Onset (ago): day(s) () Fall from: standing Fall witnessed: yes, by family Place fall occurred: home Loss of consciousness: none Prolonged down time: no Symptoms prior to fall: none Context: tripped/slipped Location of injury: buttocks Severity: moderate Quality: aching Associated symptoms (after fall): denies Related Data Previous Rx's ?Medication ?Instructions ?Recorded nitrofurantoin 100 mg PO Q12H 7 days #14 caps 08/26/22 monohydrate/macrocrystals 100 mg capsule (Macrobid) ondansetron HCl 4 mg tablet 4 mg PO Q6H PRN nausea and 08/26/22 vomiting #14 tabs bisacodyl 5 mg tablet,delayed 10 mg (2 x 5 mg) PO BEDTIME PRN 05/13/23 release (Dulcolax (bisacodyl)) constipation #30 tabs acetaminophen 325 mg tablet 650 mg (2 x 325 mg) PO Q6H PRN 08/02/23 (Tylenol) pain #60 tabs acetaminophen 325 mg tablet 650 mg (2 x 325 mg) PO Q6H PRN 08/07/23 (Tylenol) fever or pain #60 tabs Allergies Allergy/AdvReac Type Severity Reaction Status Date / Time penicillin V Allergy Unknown hives Verified 08/06/23 23:02 Seafood Allergy Unknown anaphylaxis Uncoded 02/01/23 21:43 Review of Systems Review of Systems: Constitutional : No Weight loss, No Fever, No Chills, ENT/Mouth : No Hearing loss, No Ear Pain, No Nasal Congestion, No Sinus Pain, No Hoarseness, No sore throat, No Rhinorrhea, No Swallowing Difficulty Cardiovascular : No Chest Pain, No SOB Respiratory : No Cough, No Dyspnea Gastrointestinal : No Nausea, No Vomiting, No Diarrhea, No abdominal Pain, No Hematochezia, No Melena Genitourinary : No Dysuria, No Urinary Frequency, No Hematuria, No Urinary Incontinence, Musculoskeletal : positive back pain Skin : No Skin Lesions, No rash Neuro : No Weakness, No Numbness, No Paresthesias, no loss of bowel or bladder incontinence, no saddle anesthesia all other systems reviewed and are negative [facility] Past Medical History Source: old records reviewed Medical History No pertinent past medical history Social History Social History Substance Use Type: Marijuana Advance Directives: No Advance Directives Information Provided: Yes Do you have a plan to hurt others: No Plan Physical Exam Vital Signs: Vital Signs: Last Vital Signs Temp 98.5 F 08/07/23 02:00 Pulse 71 08/07/23 02:00 Resp 16 08/07/23 02:00 BP 101/58 L 08/07/23 02:00 Pulse Ox 99 08/07/23 02:00 O2 Del Method Room Air 08/07/23 02:00 BMI result Body Mass Index 27.7 Appearance: Alert. Oriented X3. No acute distress. Eyes: Pupils equal, round and reactive to light. ENT: Pharynx normal. Neck: Normal inspection. Neck supple. CVS: Normal heart rate and rhythm. Pulses normal. Respiratory: No respiratory distress. Breath sounds normal. Abdomen: Soft and nontender. Back: ttp along tailbone but no step offs no contusions normal gait and no step offs Skin: Skin warm and dry. Normal skin color. Normal skin turgor. Extremities: No lower extremity edema. No calf ttp Neuro: Oriented X 3. No motor deficit. No sensory deficit. Medications Administered Discontinued Medications Generic Name Dose Route Start Last Admin Trade Name Freq PRN Reason Stop Dose Admin Acetaminophen 650 mg 08/07/23 02:16 08/07/23 02:26 Acetaminophen 325 Mg Tablet PO 08/07/23 02:17 650 mg ONCE ONE Administration Medical Decision Making Medical Decision Making MDM Narrative: 33 yo female who is 7 weeks has no OB trauma or complaints went down the stairs on her buttocks now has tailbone pain she is neuro intact at this time she declines xray given radiation risk and she has no signs of step offs will treat with time off from work and tylenol - she is aware and agrees Differential Diagnosis Differential Diagnoses: The differential diagnosis associated with the presentation includes tailbone pain, contusion, fracture Independent Historian Clinical information obtained from an independent historian. History obtained from or confirmed by: Spouse External Record Review External record reviewed: Inpatient record Tests considered The following testing was considered but not selected: xray but would expose fetus and she declines after discussion has no neuro findings Prescription Management I considered prescription management with: Pain Medication Discharge Plan Discharge Clinical Impression: Coccygeal injury Qualifiers: Encounter type: initial encounter Qualified Code(s): S39.92XA - Unspecified injury of lower back, initial encounter Patient Disposition: Home, Self-Care Instructions: Back Pain (ED) Additional Instructions: return for worsening pain, numbness, weakness, bleeding, loss of control of bowel or bladder or any other concerns sit on a pillow use ice or heat Prescriptions: New acetaminophen [Tylenol] 325 mg tablet 650 mg PO Q6H PRN (Reason: fever or pain) Qty: 60 0RF No Action nitrofurantoin monohyd/m-cryst [Macrobid] 100 mg capsule 100 mg PO Q12H 7 Days Qty: 14 0RF Rx Instructions: must administer with a meal/food ondansetron HCl 4 mg tablet 4 mg PO Q6H PRN (Reason: nausea and vomiting) Qty: 14 0RF bisacodyl [Dulcolax (bisacodyl)] 5 mg tablet,delayed release (DR/EC) 10 mg PO BEDTIME PRN (Reason: constipation) Qty: 30 0RF acetaminophen [Tylenol] 325 mg tablet 650 mg PO Q6H PRN (Reason: pain) Qty: 60 0RF Stand Alone Forms: Work/School Release Print Language: Turkmen
[2023-08-07] MEDS: Acetaminophen 325 MG TABLET 650 MG PO (02:26)
[2023-08-07 02:55] VITALS: BP 104/60; PULSE 64; RESP 20; TEMP 37.1
--- NOTE | 2023-08-07 02:58 | PC.NURSE ---
Pt a&o, no sob or chest pain, pt has a steady gait upon discharge, reviewed discharge instructions with pt. pt verbalized understanding, no sign of distress.
[2023-08-07 03:00] VITALS: BP 104/64; PULSE 64; RESP 20; TEMP 37.1; O2SAT 98
== END 2023-08-07 03:01 | disposition home or self-care (01) ==
PROVIDERS: Emergency Provider Emergency Medicine; PCP Internal Medicine
DX: O9A.211 Injury, poisoning and certain other consequences of external causes complicating pregnancy, first trimester (principal); S39.92XA Unspecified injury of lower back, initial encounter; W10.8XXA Fall (on) (from) other stairs and steps, initial encounter; Z3A.01 Less than 8 weeks gestation of pregnancy; Y93.9 Activity, unspecified; Y92.9 Unspecified place or not applicable; Y99.9 Unspecified external cause status
CPT/HCPCS: 99283; 99284

== ENCOUNTER 2023-11-18 16:20 | Emergency (ER) | payer MEDICAID, SELFPAY ==
[2023-11-18 16:26] VITALS: BP 106/63; PULSE 94; RESP 16; TEMP 36.6; O2SAT 99; BMI 30.4
--- NOTE | 2023-11-18 16:27 | ED_ITS ---
HPI - General Chief complaint: OB Stated complaint: 22wks feeling pressure Time Seen by Provider: 11/18/23 16:46 Source: patient Mode of arrival: ambulatory Limitations: no limitations History of Present Illness ED Provider: Dr. Lucero Feliciano HPI Narrative: Patient comes to the emergency room accompanied by her partner. Patient is a A2 at 22 weeks of gestational age. Patient states that she has had an uneventful . Patient has been told that for this she has a low lying placenta. Today patient started having intermittent suprapubic discomfort and constant lower back pain with radiation. Patient denies any falls or any injuries. Patient denies any urinary symptoms, denies vaginal fluid leakage or vaginal bleeding. Patient denies nausea vomiting or diarrhea. Patient states that her last was delivered by due to an emergency. Patient states that around 5 weeks of gestational age, patient developed acute cholecystitis for which she needed surgery. And then 2 months before her due date, patient developed an abdominal muscular tear, which led to intra-abdominal bleeding. Patient was hypotensive, the fetus had bradycardia and therefore an emergency Section had to be done. Related Data Previous Rx's ?Medication ?Instructions ?Recorded nitrofurantoin 100 mg PO Q12H 7 days #14 caps 08/26/22 monohydrate/macrocrystals 100 mg capsule (Macrobid) ondansetron HCl 4 mg tablet 4 mg PO Q6H PRN nausea and 08/26/22 vomiting #14 tabs bisacodyl 5 mg tablet,delayed 10 mg (2 x 5 mg) PO BEDTIME PRN 05/13/23 release (Dulcolax (bisacodyl)) constipation #30 tabs acetaminophen 325 mg tablet 650 mg (2 x 325 mg) PO Q6H PRN 08/02/23 (Tylenol) pain #60 tabs acetaminophen 325 mg tablet 650 mg (2 x 325 mg) PO Q6H PRN 08/07/23 (Tylenol) fever or pain #60 tabs Allergies Allergy/AdvReac Type Severity Reaction Status Date / Time penicillin V Allergy Unknown hives Verified 11/18/23 16:27 Seafood Allergy Unknown anaphylaxis Uncoded 02/01/23 21:43 Review of Systems 2 Review of Systems: Constitutional : No Weight loss, No Fever, No Chills, No Night Sweats, No Fatigue, No Malaise ENT/Mouth : No Hearing loss, No Ear Pain, No Nasal Congestion, No Sinus Pain, No Hoarseness, No sore throat, No Rhinorrhea, No Swallowing Difficulty Eyes: No Eye Pain, No Swelling, No Redness, No Foreign Body, No Discharge, No Vision Changes Cardiovascular : No Chest Pain, No SOB, No Dyspnea on Exertion, No Orthopnea, No Edema, No Palpitations Respiratory : No Cough, No Sputum, No Wheezing, No Smoke Exposure, No Dyspnea Gastrointestinal : No Nausea, No Vomiting, No Diarrhea, No Constipation, No abdominal Pain, No Hematochezia, No Melena Genitourinary : Complaining of suprapubic pressure intermittently, not at this time, constant back pain since this morning. No Dysuria, No Urinary Frequency, No Hematuria, No Urinary Incontinence, No Urgency, No Flank Pain, No Urinary Flow Changes, No Hesitancy Musculoskeletal : No joint pain, No Myalgias, No Joint Swelling Skin : No Skin Lesions, No rash Neuro : No Weakness, No Numbness, No Paresthesias, No Loss of Consciousness, No Dizziness, No Headache Psych : No Anxiety/Panic, No Depression, No SI/HI/AH/VH, No Social Issues, Heme/Lymph: No Bruising, No Bleeding,No Lymphadenopathy Endocrine : No Polyuria, No Polydipsia, No Temperature Intolerance [facility] Past Medical History Medical History No pertinent past medical history Social History Social History Smoked in Last 30 Days: No Use of substances other than those prescribed or required for medical reasons: Yes Substance Use Type: Marijuana Advance Directives: No Advance Directives Information Provided: No Do you have a plan to hurt others: No Plan Patient : Yes Physical Exam 2 Vital Signs: Vital Signs: Last Vital Signs Temp 98.2 F 11/18/23 18:00 Pulse 80 11/18/23 18:00 Resp 11/18/23 18:00 BP 106/56 L 11/18/23 18:00 Pulse Ox 100 11/18/23 18:00 O2 Del Method Room Air 11/18/23 18:00 BMI result Body Mass Index 30.4 Const: Other: Appearance: Alert. Oriented X3. No acute distress. Eyes: Pupils equal, round and reactive to light. ENT: Pharynx normal. Neck: Normal inspection. Neck supple. No lymph nodes noted. No crepitus CVS: Normal heart rate and rhythm. Pulses normal. Normal S1 and S2 Respiratory: No respiratory distress. Breath sounds normal. No Wheezing. No rales Abdomen: Soft , no pain to palpation at all, bedside ultrasound shows good movement, heart rate 130-140 : No vaginal fluid pooling in the vaginal vault, cervix is closed , no discharge, no blood Skin: Skin warm and dry. Normal skin color. Normal skin turgor. Extremities: No lower extremity edema. No Lacerations. No Rash Neuro: Oriented X 3. No motor deficit. No sensory deficit. Moving all extremities. No slurred speech. CN 2 through 12 grossly intact Psych: calm, cooperative, normal affect Course Course Course Narrative: This is a Rapid Medical Examination (RME) performed by Rohit Woods PA-C in triage. Full HPI, ROS, assessment and treatment plan per primary provider in the Main ED. 33 y/o who is currently 22 weeks LATRICE of 03/23/23 who presents to the ER for evaluation of lower abdominal pressure and low back pain that started this morning. hx low lying placenta this . history of pre-term delivery with last 2 months early. follows with [facility]. back pain is constant and the lower abdominal pain is intermittent, feels like pressure, not contractions. no urinary symptoms. no leaking of fluid. no vaginal discharge or bleeding. Plan: labs, IVF, call [facility] Medications Administered Discontinued Medications Generic Name Dose Route Start Last Admin Trade Name Corinne PRN Reason Stop Dose Admin Acetaminophen 650 mg 11/18/23 17:03 11/18/23 17:19 Acetaminophen 325 Mg Tablet PO 11/18/23 17:04 650 mg ONCE ONE Administration Sodium Chloride 1,000 mls @ 999 mls/hr 11/18/23 16:45 11/18/23 18:36 Ns IVCONT 11/18/23 17:45 Infused .Q1H1M PAULA Infusion Sodium Chloride 1,000 mls @ 999 mls/hr 11/18/23 17:03 11/18/23 18:36 Ns IVCONT 11/18/23 18:03 999 mls/hr .Q1H1M ONE Administration Medical Decision Making Medical Decision Making MDM Narrative: -my interpretation of labs: Patient's white blood cell count 4.7, hemoglobin 10.4 which is a bit lower than previous labs in July of 2023 which was 12.4. Hematocrit 3.1. Platelets 234. No significant abnormalities in electrolytes, LFTs all within normal limits -after p.o. medications, Tylenol p.o., patient states that she feels much better, still having very mild suprapubic discomfort, back pain nearly resolved. -urinalysis pending. -I discussed the patient with OBGYN at [facility]. At this time, there is no need for further monitoring or transferring. Patient is to report tomorrow to her OBGYN. Also, if patient has any further symptoms, OBGYN from [facility] would like her to go straight to [facility] at [facility] -patient feels well, tolerating p.o. well. -urinalysis is negative for UTI -patient being discharged in good condition, normal vitals, no pain or abdominal pressure Differential Diagnosis Differential Diagnoses: The differential diagnosis associated with the presentation includes ( labor, musculoskeletal back pain) Admission/Observation Consideration of admission/observation: Escalation of care including admission/observation considered (Given patient's presentation and past OBGYN history, transfer was considered) Consult Healthcare Provider Management of the patient was discussed with: Director Of Front Office Lab Data [facility] Lab Attestation statement: I reviewed the patient's lab results. 11/18/23 17:14 11/18/23 17:14 Labs: Lab Results 11/18/23 11/18/23 Range/Units 17:14 18:24 WBC 4.7 L (4.8-10.8) X10*3/uL RBC 3.38 L (4.20-5.50) X10*6/uL Hgb 10.4 L (12.0-16.0) g/dl Hct 30.1 L (37.0-47.0) % MCV 89.1 (80.0-98.0) fL MCH 30.8 (27.0-33.0) pg MCHC 34.6 (31.0-35.0) g/dl RDW 13.2 (11.0-16.0) % Plt Count 234 (160-400) X10*3/uL MPV 9.8 (9.4-12.3) fL Immature Gran % (Auto) 0.2 (0.0-0.4) % Neut % (Auto) 70.0 (45-73) % Lymph % (Auto) 20.3 (20-40) % [place] % (Auto) 7.4 (2-11) % Eos % (Auto) 1.9 (0-4) % Baso % (Auto) 0.2 (0-2) % Lymph # (Auto) 1.0 L (1.2-4.9) X10*3/uL [place] # (Auto) 0.4 (0.1-1.2) X10*3/uL Eos # (Auto) 0.1 (0.0-0.4) X10*3/uL Baso # (Auto) 0.0 (0.0-0.2) X10*3/uL Abs Immat Gran (auto) 0.01 (0.00-0.03) X10*3/uL Absolute Neuts (auto) 3.3 (2.0-8.3) x10*3/uL Absolute Nucleated RBC 0.000 (0.0-0.012) X10*3/uL Nucleated RBC % (auto) 0.0 (0.0-0.2) /100WBC Sodium 138 (135-145) mmol/L Potassium 3.5 (3.3-5.1) mmol/L Chloride 108 (96-108) mmol/L Carbon Dioxide 24 (22-29) mmol/L Anion Gap 10 L (12-20) BUN 7 L (9-16) mg/dL Creatinine 0.63 (0.5-1.4) mg/dL Estim Creat Clear Calc 113.9 Estimated GFR > 60 Random Glucose 81 (60-115) mg/dL Calcium 8.7 D (8.4-10.2) mg/dL Magnesium 1.8 (1.6-2.6) mg/dL Total Bilirubin 0.3 (0.0-1.0) mg/dL Direct Bilirubin 0.1 (0.0-0.5) mg/dL AST 10 (5-31) U/L ALT 6 (0-31) U/L Alkaline Phosphatase 56 (39-117) U/L Total Protein 5.9 L (6.5-8.0) g/dL Albumin 3.0 L (3.5-5.0) g/dL Urine Color Yellow Urine Appearance Clear Urine pH 6.5 (5.0-9.0) Ur Specific [place] >= 1.030 H (1.005-1.025) Urine Protein Negative (Neg-Trace) mg/dL Urine Glucose (UA) Negative (Negative) mg/dL Urine Ketones Negative (Negative) mg/dL Urine Blood Negative (Negative) Urine Nitrite Negative (Negative) Ur Leukocyte Esterase Negative (Negative) Critical Care Time Critical Care Time Critical Care Time: Yes Total Critical Care Time: 60 Attestation: I have personally provided critical care time. Time includes review of lab data, radiology results, discussion with consultants, and monitoring for potential decompensation. Intervention performed as documented. Discharge Plan Discharge Clinical Impression: Back pain Patient Disposition: Home, Self-Care Instructions: Back Pain (ED) Additional Instructions: Please follow-up with your primary care physician tomorrow. If you have any worsening or new symptoms, please return to the emergency room or call 911 Prescriptions: No Action nitrofurantoin monohyd/m-cryst [Macrobid] 100 mg capsule 100 mg PO Q12H 7 Days Qty: 14 0RF Rx Instructions: must administer with a meal/food ondansetron HCl 4 mg tablet 4 mg PO Q6H PRN (Reason: nausea and vomiting) Qty: 14 0RF bisacodyl [Dulcolax (bisacodyl)] 5 mg tablet,delayed release (DR/EC) 10 mg PO BEDTIME PRN (Reason: constipation) Qty: 30 0RF acetaminophen [Tylenol] 325 mg tablet 650 mg PO Q6H PRN (Reason: pain) Qty: 60 0RF acetaminophen [Tylenol] 325 mg tablet 650 mg PO Q6H PRN (Reason: fever or pain) Qty: 60 0RF Print Language: Croatian
[2023-11-18 17:10] VITALS: BP 101/54; PULSE 90; RESP 16; TEMP 37.1; O2SAT 98
[2023-11-18 17:19] LABS: MANUAL DIFF FLAG NO
[2023-11-18] MEDS: Acetaminophen 325 MG TABLET 650 MG PO (17:19)
[2023-11-18] MEDS: 0.9 % Sodium Chloride 1,000 ML 999 ML IVCONT ×2 (17:20→18:36)
[2023-11-18 17:21] LABS: Basophils Percent Auto 0.2 % (0-2); Eosinophils Absolute Auto 0.1 X10*3/uL (0.0-0.4); Eosinophils Percent Auto 1.9 % (0-4); Hematocrit 30.1 % (37.0-47.0); Hemoglobin 10.4 g/dl (12.0-16.0); Imm Gran Abs Auto 0.01 X10*3/uL (0.00-0.03); Imm Gran Pct Auto 0.2 % (0.0-0.4); Lymphocytes Percent Auto 20.3 % (20-40); Mean Corpuscular HGB Conc 34.6 g/dl (31.0-35.0); Mean Corpuscular Hemoglobin 30.8 pg (27.0-33.0); Mean Corpuscular Volume 89.1 fL (80.0-98.0); Mean Platelet Volume 9.8 fL (9.4-12.3); Monocytes Absolute Auto 0.4 X10*3/uL (0.1-1.2); Monocytes Percent Auto 7.4 % (2-11); Neutrophils Absolute Auto 3.3 x10*3/uL (2.0-8.3); Platelet Count 234 X10*3/uL (160-400); Red Blood Count 3.38 X10*6/uL (4.20-5.50); Red Cell Distribution Width 13.2 % (11.0-16.0); White Blood Count 4.7 X10*3/uL (4.8-10.8)
[2023-11-18 17:41] LABS: Alanine Aminotransferase 6 U/L (0-31); Alkaline Phosphatase 56 U/L (39-117); Anion Gap 10 (12-20); Aspartate Amino Transferase 10 U/L (5-31); Bilirubin Direct 0.1 mg/dL (0.0-0.5); Bilirubin Total 0.3 mg/dL (0.0-1.0); Blood Urea Nitrogen 7 mg/dL (9-16); Calcium 8.7 mg/dL (8.4-10.2); Carbon Dioxide 24 mmol/L (22-29); Chloride 108 mmol/L (96-108); Creatinine Clr Calc Pharmacy 113.9; Estimated Glomerular Filt Rate > 60; Glucose Random 81 mg/dL (60-115); Magnesium 1.8 mg/dL (1.6-2.6); Potassium 3.5 mmol/L (3.3-5.1); Sodium 138 mmol/L (135-145); Total Protein 5.9 g/dL (6.5-8.0)
[2023-11-18 18:00] VITALS: BP 106/56; PULSE 80; RESP 18; TEMP 36.8; O2SAT 100
[2023-11-18 18:47] LABS: Appearance Urine Clear; Color Urine Yellow; Glucose Urine UA Negative (Negative); Leukocyte Esterase Urine Negative (Negative); Nitrite Urine Negative (Negative); PH 6.5 (5.0-9.0); Specific Gravity - Urine >= 1.030 (1.005-1.025); Urine Blood Negative (Negative); Urine Ketones Negative (Negative); Urine Protein Negative (Neg-Trace)
[2023-11-18 19:53] VITALS: BP 101/59; PULSE 80; RESP 16; TEMP 36.8; O2SAT 100
== END 2023-11-18 19:54 | disposition home or self-care (01) ==
PROVIDERS: Physician Assistant; Emergency Provider Emergency Medicine; PCP Internal Medicine
DX: O26.892 Other specified pregnancy related conditions, second trimester (principal); R10.30 Lower abdominal pain, unspecified; Z3A.22 22 weeks gestation of pregnancy; Z79.899 Other long term (current) drug therapy
CPT/HCPCS: 36415; 80048; 80076; 81003; 83735; 85025; 96360; 96361; 99284; 99285

== ENCOUNTER 2023-12-18 03:56 | Emergency (ER) | payer MEDICAID, SELFPAY ==
[2023-12-18 04:03] VITALS: BP 120/69; PULSE 98; RESP 20; TEMP 36.6; O2SAT 99; BMI 30.4
[2023-12-18 05:14] LABS: Basophils Percent Auto 0.2 % (0-2); Eosinophils Absolute Auto 0.1 X10*3/uL (0.0-0.4); Eosinophils Percent Auto 0.9 % (0-4); Hematocrit 30.3 % (37.0-47.0); Hemoglobin 10.6 g/dl (12.0-16.0); Imm Gran Abs Auto 0.02 X10*3/uL (0.00-0.03); Imm Gran Pct Auto 0.3 % (0.0-0.4); Lymphocytes Absolute Auto 1.2 X10*3/uL (1.2-4.9); Lymphocytes Percent Auto 19.3 % (20-40); MANUAL DIFF FLAG NO; Mean Corpuscular Hemoglobin 30.5 pg (27.0-33.0); Mean Corpuscular Volume 87.1 fL (80.0-98.0); Mean Platelet Volume 9.6 fL (9.4-12.3); Monocytes Absolute Auto 0.3 X10*3/uL (0.1-1.2); Monocytes Percent Auto 5.3 % (2-11); Neutrophils Absolute Auto 4.7 x10*3/uL (2.0-8.3); Platelet Count 207 X10*3/uL (160-400); Red Blood Count 3.48 X10*6/uL (4.20-5.50); Red Cell Distribution Width 12.9 % (11.0-16.0); White Blood Count 6.4 X10*3/uL (4.8-10.8)
[2023-12-18 05:40] LABS: Anion Gap 11 (12-20); Blood Urea Nitrogen 7 mg/dL (9-16); Calcium 8.1 mg/dL (8.4-10.2); Carbon Dioxide 22 mmol/L (22-29); Chloride 107 mmol/L (96-108); Creatinine Clr Calc Pharmacy 135.4; Estimated Glomerular Filt Rate > 60; Glucose Random 86 mg/dL (60-115); HCG Quantitative 5454 mIU/mL; Potassium 3.4 mmol/L (3.3-5.1); Sodium 137 mmol/L (135-145)
[2023-12-18 05:56] VITALS: BP 107/62; PULSE 66; RESP 16; TEMP 36.8; O2SAT 98
--- NOTE | 2023-12-18 07:24 | ED.GENADULT ---
HPI - General Adult General Chief complaint: Back Pain/Injury Stated complaint: , homeless and seeking help Time Seen by Provider: 12/18/23 07:13 Source: patient Mode of arrival: ambulatory Limitations: no limitations History of Present Illness ED Provider: DR. Shelby HPI narrative: 33-year-old female 26 week with care done at [facility] patient stated with no issue with her , no abdominal pain, no vaginal bleed, lower abdominal contractions complaining low back pain, patient with history of chronic low back pain, no trauma to low back, no fall no fever, chills, declined any history of using IV drugs, patient admitted to only smoking marijuana, patient currently is homeless assisted by a friend house, no CP, no headache. Related Data Previous Rx's ?Medication ?Instructions ?Recorded nitrofurantoin 100 mg PO Q12H 7 days #14 caps 08/26/22 monohydrate/macrocrystals 100 mg capsule (Macrobid) ondansetron HCl 4 mg tablet 4 mg PO Q6H PRN nausea and 08/26/22 vomiting #14 tabs bisacodyl 5 mg tablet,delayed 10 mg (2 x 5 mg) PO BEDTIME PRN 05/13/23 release (Dulcolax (bisacodyl)) constipation #30 tabs acetaminophen 325 mg tablet 650 mg (2 x 325 mg) PO Q6H PRN 08/02/23 (Tylenol) pain #60 tabs acetaminophen 325 mg tablet 650 mg (2 x 325 mg) PO Q6H PRN 08/07/23 (Tylenol) fever or pain #60 tabs Allergies Allergy/AdvReac Type Severity Reaction Status Date / Time penicillin V Allergy Unknown hives Verified 12/18/23 04:05 Seafood Allergy Unknown anaphylaxis Uncoded 02/01/23 21:43 Review of Systems Review of Systems: All other systems are reviewed and are negative Constitutional: Reports as per HPI and Reports no additional constitutional complaints Eyes: Reports as per HPI and Reports no additional eye complaints Reports system reviewed and no additional complaints, except as documented Cardiovascular: Reports as per HPI and Reports no additional cardiovascular complaints Respiratory: Reports as per HPI and Reports no additional respiratory complaints Gastrointestinal: Reports as per HPI and Reports no additional gastrointestinal complaints Genitourinary: Reports no additional female genitourinary complaints Musculoskeletal: Reports no additional musculoskeletal complaints Skin/Breast: Reports system reviewed and no additional complaints, except as docu Psychiatric: Reports no additional psychiatric complaints Endocrine: Reports no additional endocrine complaints Hematologic/Lymphatic: Reports no additional hematologic/lymphatic complaints Allergic/Immunologic: Reports no additional allergic/immunologic complaints Reports system reviewed and no additional complaints, except as documented and Reports Abnormal speech present [facility] Past Medical History Medical History No pertinent past medical history Social History Social History Smoked in Last 30 Days: No Use of substances other than those prescribed or required for medical reasons: Yes Substance Use Type: Marijuana Advance Directives: No Advance Directives Information Provided: No Do you have a plan to hurt others: No Plan Patient : Yes Physical Exam ED Vital Signs: Vital Signs - 24 hr 12/18/23 04:03 12/18/23 05:56 12/18/23 09:21 Temperature 97.9 F 98.2 F 98.0 F Pulse Rate 98 66 80 Respiratory Rate 20 16 18 Blood Pressure 120/69 107/62 113/69 Pulse Oximetry 99 98 97 Oxygen Delivery Method Room Air Room Air Room Air BMI result Body Mass Index 30.4 Vital signs have been reviewed and appear to be correct. Blood pressure elevated. Heart rate normal. Respiratory rate normal. Temperature normal. Oxygen saturation normal. Appearance: Alert. Oriented X3. No acute distress. Head: Normal external exam. Normocephalic. Atraumatic. No Drummond signs noted. No raccoon eyes noted Eyes: PERRLA. EOMI. Conjunctiva and sclera normal. Eyelids normal. ENT: TM's Normal. Pharynx normal. Uvula midline. Moist mucous membranes. No trismus noted. No drooling noted. No muffled voice noted. Neck: Normal inspection. Neck supple. FROM. No adenopathy. Thyroid Normal. No meningeal signs. No neck mass noted. CVS: Normal heart rate and rhythm. Heart sound normal. No murmurs noted. Pulses normal throughout. Respiratory: No respiratory distress. Painless inspiration. Breath sounds normal. No wheezes/rales/rhonchi noted. Chest nontender. No accessory muscle usage noted or decreased air movement noted. Abdomen: Soft and nontender. Bowel sounds normal in all 4 quadrants. No distention noted. No organomegaly noted. No visible injury noted. Back: No CVA tenderness. Full range of motion noted. Skin: Skin warm and dry. Normal skin color. Normal skin turgor. No rashes/lesions/lacerations noted. Extremities: No lower extremity edema. Extremities exhibit normal range of motion. Extremities nontender. Neuro: Oriented X 3. Cranial nerve exam: II-XII are grossly intact No motor deficit. No sensory deficit. Reflexes normal. Course Reevaluation(s) Reevaluation #1: at 26 week with no abdominal pain or vaginal bleeding, patient follow at [facility] for care reportedly by the patient there is no issue, Posttussive subjective baby movement, no recent injury or back pain, normal neuro exam and back exam. Feels better after Tylenol requesting discharge. No dysuria, no frequency urination, UA is clear. Time: 10:18 Medications Administered Discontinued Medications Generic Name Dose Route Start Last Admin Trade Name Freq PRN Reason Stop Dose Admin Acetaminophen 650 mg 12/18/23 07:22 12/18/23 07:38 Acetaminophen 325 Mg Tablet PO 12/18/23 07:23 650 mg ONCE ONE Administration Medical Decision Making Differential Diagnosis Differential Diagnoses: The differential diagnosis associated with the presentation includes ( back contusion, 2nd trimester complication, severe anemia, electrolyte derangement.) Admission/Observation Consideration of admission/observation: Escalation of care including admission/observation considered Lab Data MDM Lab Attestation statement: I reviewed the patient's lab results. 12/18/23 05:07 12/18/23 05:07 Labs: Lab Results 12/18/23 12/18/23 Range/Units 05:07 09:21 WBC 6.4 (4.8-10.8) X10*3/uL RBC 3.48 L (4.20-5.50) X10*6/uL Hgb 10.6 L (12.0-16.0) g/dl Hct 30.3 L (37.0-47.0) % MCV 87.1 (80.0-98.0) fL MCH 30.5 (27.0-33.0) pg MCHC 35.0 (31.0-35.0) g/dl RDW 12.9 (11.0-16.0) % Plt Count 207 (160-400) X10*3/uL MPV 9.6 (9.4-12.3) fL Immature Gran % (Auto) 0.3 (0.0-0.4) % Neut % (Auto) 74.0 H (45-73) % Lymph % (Auto) 19.3 L (20-40) % [place] % (Auto) 5.3 (2-11) % Eos % (Auto) 0.9 (0-4) % Baso % (Auto) 0.2 (0-2) % Lymph # (Auto) 1.2 (1.2-4.9) X10*3/uL [place] # (Auto) 0.3 (0.1-1.2) X10*3/uL Eos # (Auto) 0.1 (0.0-0.4) X10*3/uL Baso # (Auto) 0.0 (0.0-0.2) X10*3/uL Abs Immat Gran (auto) 0.02 (0.00-0.03) X10*3/uL Absolute Neuts (auto) 4.7 (2.0-8.3) x10*3/uL Absolute Nucleated RBC 0.000 (0.0-0.012) X10*3/uL Nucleated RBC % (auto) 0.0 (0.0-0.2) /100WBC Sodium 137 (135-145) mmol/L Potassium 3.4 (3.3-5.1) mmol/L Chloride 107 (96-108) mmol/L Carbon Dioxide 22 (22-29) mmol/L Anion Gap 11 L (12-20) BUN 7 L (9-16) mg/dL Creatinine 0.53 (0.5-1.4) mg/dL Estim Creat Clear Calc 135.4 Estimated GFR > 60 Random Glucose 86 (60-115) mg/dL Calcium 8.1 L D (8.4-10.2) mg/dL Beta HCG, Quant 5454 mIU/mL Urine Color Dark Yellow Urine Appearance Clear Urine pH 5.5 (5.0-9.0) Ur Specific [place] >= 1.030 H (1.005-1.025) Urine Protein Trace (Neg-Trace) mg/dL Urine Glucose (UA) Negative (Negative) mg/dL Urine Ketones 40 (Negative) mg/dL Urine Blood Negative (Negative) Urine Nitrite Negative (Negative) Ur Leukocyte Esterase Trace H (Negative) Urine RBC 0-2 (0-2) /HPF Urine WBC 0-5 (0-5) /HPF Ur Squamous Epith Cells 11-20 (0-2) /HPF Urine Bacteria 2+ (None Seen) Hyaline Casts 0-2 (0-2) /LPF Discharge Plan Discharge Clinical Impression: Strain of lumbar region Patient Disposition: Home, Self-Care Instructions: Low Back Strain (ED) Prescriptions: No Action nitrofurantoin monohyd/m-cryst [Macrobid] 100 mg capsule 100 mg PO Q12H 7 Days Qty: 14 0RF Rx Instructions: must administer with a meal/food ondansetron HCl 4 mg tablet 4 mg PO Q6H PRN (Reason: nausea and vomiting) Qty: 14 0RF bisacodyl [Dulcolax (bisacodyl)] 5 mg tablet,delayed release (DR/EC) 10 mg PO BEDTIME PRN (Reason: constipation) Qty: 30 0RF acetaminophen [Tylenol] 325 mg tablet 650 mg PO Q6H PRN (Reason: pain) Qty: 60 0RF acetaminophen [Tylenol] 325 mg tablet 650 mg PO Q6H PRN (Reason: fever or pain) Qty: 60 0RF Referrals: Hiwot Avalos MD [Primary Care Provider] - Print Language: [place] Timorese
[2023-12-18] MEDS: Acetaminophen 325 MG TABLET 650 MG PO (07:38)
[2023-12-18 09:21] VITALS: BP 113/69; PULSE 80; RESP 18; TEMP 36.7; O2SAT 97
[2023-12-18 09:32] LABS: Appearance Urine Clear; Color Urine Dark Yellow; Glucose Urine UA Negative (Negative); Leukocyte Esterase Urine Trace (Negative); Nitrite Urine Negative (Negative); PH 5.5 (5.0-9.0); Specific Gravity - Urine >= 1.030 (1.005-1.025); UMIC TRIGGER UACC YES; Urine Blood Negative (Negative); Urine Ketones 40 mg/dL (Negative); Urine Protein Trace mg/dL (Neg-Trace)
[2023-12-18 09:36] LABS: Bacteria Urine 2+ (None Seen); Hyaline Casts Urine 0-2 /LPF (0-2); RBC Urine 0-2 /HPF (0-2); WBC Urine 0-5 /HPF (0-5)
[2023-12-18 10:22] VITALS: BP 113/69; PULSE 80; RESP 18; TEMP 36.7; O2SAT 97
== END 2023-12-18 10:23 | disposition home or self-care (01) ==
PROVIDERS: Emergency Provider Emergency Medicine; PCP Internal Medicine
DX: O9A.212 Injury, poisoning and certain other consequences of external causes complicating pregnancy, second trimester (principal); S39.012A Strain of muscle, fascia and tendon of lower back, initial encounter; O99.322 Drug use complicating pregnancy, second trimester; F12.90 Cannabis use, unspecified, uncomplicated; O09.522 Supervision of elderly multigravida, second trimester; Z3A.26 26 weeks gestation of pregnancy; X58.XXXA Exposure to other specified factors, initial encounter; Y93.9 Activity, unspecified; Y92.9 Unspecified place or not applicable; Y99.9 Unspecified external cause status
CPT/HCPCS: 36415; 80048; 81001; 84702; 85025; 99283; 99284

== ENCOUNTER 2024-04-27 13:16 | Emergency (ER) | payer MEDICAID, SELFPAY ==
--- NOTE | ~2024-04-27 | XR_ITS ---
EXAMINATION: XR FOREARM 2 VIEWS LEFT, XR ELBOW 1-2 VIEWS LEFT HISTORY: fall COMPARISON: There are no prior studies available for comparison. FINDINGS: Four views of the left elbow and AP and lateral views of the left forearm are submitted. Osseous mineralization is normal. There is a tiny fracture fragment adjacent to the olecranon process of the ulna. An additional osseous density is seen adjacent to the medial humeral epicondyle, of uncertain donor site. The joint spaces are preserved. There is a joint effusion with elevation of the anterior and posterior fat pads. XR/XR elbow LT 2V IMPRESSION: Tiny fracture fragment adjacent to the olecranon process of the ulna. An additional probable fracture fragment is seen adjacent to the medial humeral epicondyle, uncertain donor site. Electronically signed by: Brian Ryan MD 04/27/2024 02:13 PM [facility]
--- NOTE | ~2024-04-27 | CT_ITS ---
EXAMINATION: CT HEAD WITHOUT CONTRAST CLINICAL INFORMATION: Fall, head strike. COMPARISON: None available. TECHNIQUE: Contiguous axial imaging was performed from the skull base to vertex without intravenous administration of contrast. This CT examination was performed using dose optimization techniques as appropriate, variously including the following: *Automated exposure control *Adjustment of mA and/or kV according to patient size (this includes techniques or standardized protocols for targeted exams where dose is matched to indication/reason for exam; i.e. extremities or head) *Use of iterative reconstruction technique FINDINGS: There is no evidence of intracranial hemorrhage or extra-axial fluid collection. There is no mass effect, or edema. No CT evidence of acute territorial infarct. Ventricles, sulci, and cisterns are normal in size and configuration for patient age. No hydrocephalus. No midline shift. Negative hyperdense MCA sign. Negative insular ribbon sign. No white matter abnormalities. Normal pituitary. Globes and orbital contents image normally. No extracranial soft tissue abnormalities. The paranasal sinuses, mastoid air cells, and tympanic cavities are normally aerated. No suspicious bony abnormalities. There are no acute fractures evident. CT/CT head/brain wo IV con IMPRESSION: No acute intracranial abnormality. Electronically signed by: Haider Langley MD 04/27/2024 02:15 PM [facility] [place]
--- NOTE | ~2024-04-27 | CT_ITS ---
EXAMINATION: CT CERVICAL SPINE WITHOUT CONTRAST CLINICAL INFORMATION: Status post fall. COMPARISON: None available. TECHNIQUE: Contiguous axial images through the cervical spine using 3 mm collimation with bone and soft tissue algorithm. Sagittal and coronal reformatted images acquired. This CT examination was performed using dose optimization techniques as appropriate, variously including the following: *Automated exposure control *Adjustment of mA and/or kV according to patient size (this includes techniques or standardized protocols for targeted exams where dose is matched to indication/reason for exam; i.e. extremities or head) *Use of iterative reconstruction technique DLP: 311 mGy centimeter. FINDINGS: Craniocervical junction is intact. C1 is intact. C2 is intact. C3 is intact. C4 is intact. C5 is intact. C6 is intact. C7 is intact. There is no gross malalignment between the vertebral bodies or the facet joints. No prevertebral compartment hematoma. There is mucosal thickening/attenuation surrounding the ossicles of the right tympanic cavity. Mucosal thickening and secretions in the dependent portion of the right mastoid air cells. CT/CT cervical spine wo IV con IMPRESSION: No acute fracture or trauma-related listhesis. Inflammatory versus infectious processes versus cholesteatoma, right tympanic cavity/right mastoid air cells. Fleischner guidelines were followed. Electronically signed by: Dhaval Hankins MD 04/27/2024 02:14 PM [facility]
--- NOTE | ~2024-04-27 | CT_ITS ---
CLINICAL HISTORY: fall onto elbow, further characterize fracture Noncontrast CT, left elbow Indication: Fracture Comparison: Radiographs same day Findings: There is a mildly comminuted fracture involving the articular surface of the distal lateral humeral condyle. No significant joint effusion. Prominent surrounding edema. The proximal radius and proximal ulna are intact. Impression: Mildly comminuted fracture involving the distal lateral femoral condyle in the region of the lateral collateral ligament origin. This document has been electronically signed by: Lenin Dubon MD on 04/27/2024 18:26:37
--- NOTE | ~2024-04-27 | XR_ITS ---
EXAMINATION: XR SHOULDER, LEFT CLINICAL INFORMATION: fall COMPARISON: None available. TECHNIQUE: AP external rotation, Grashey, scapular Y, and axillary views of the left shoulder. FINDINGS: Normal bone mineralization. No fracture, dislocation, or suspicious bone lesion. Normal alignment. The glenohumeral joint is normal. The AC joint is normal. There is a type II acromion. No undersurface spurring. The subacromial space is preserved. Remainder of the soft tissue and bony structures appear normal. XR/XR shoulder LT min 2V IMPRESSION: Normal left shoulder. Electronically signed by: Haider Langley MD 04/27/2024 02:12 PM [facility] [place]
--- NOTE | ~2024-04-27 | XR_ITS ---
EXAMINATION: XR FOREARM 2 VIEWS LEFT, XR ELBOW 1-2 VIEWS LEFT HISTORY: fall COMPARISON: There are no prior studies available for comparison. FINDINGS: Four views of the left elbow and AP and lateral views of the left forearm are submitted. Osseous mineralization is normal. There is a tiny fracture fragment adjacent to the olecranon process of the ulna. An additional osseous density is seen adjacent to the medial humeral epicondyle, of uncertain donor site. The joint spaces are preserved. There is a joint effusion with elevation of the anterior and posterior fat pads. XR/XR forearm LT 2V IMPRESSION: Tiny fracture fragment adjacent to the olecranon process of the ulna. An additional probable fracture fragment is seen adjacent to the medial humeral epicondyle, uncertain donor site. Electronically signed by: Brian Ryan MD 04/27/2024 02:13 PM [facility]
[2024-04-27 13:36] VITALS: BP 148/75; PULSE 82; RESP 18; TEMP 36.4; O2SAT 100; BMI 29.2
--- NOTE | 2024-04-27 13:39 | ED.EXTPRO ---
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 She reports slipping on ice infront of her mother's house and landing directly onto her left elbow. Admits to head strike. No LOC. She is not on anticoagulation. Reports immediate pain to her entire left elbow, stating it feels like it's inside out . Reports pain with both extension and flexion of left elbow. 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 Denies left hand/wrist or shoulder pain. Denies numbness/tingling/weakness of the LUE. Denies headache, dizziness, vision changes, neck or back pain. Related Data Previous Rx's ?Medication ?Instructions ?Recorded nitrofurantoin 100 mg PO Q12H 7 days #14 caps 08/26/22 monohydrate/macrocrystals 100 mg capsule (Macrobid) ondansetron HCl 4 mg tablet 4 mg PO Q6H PRN nausea and 08/26/22 vomiting #14 tabs bisacodyl 5 mg tablet,delayed 10 mg (2 x 5 mg) PO BEDTIME PRN 05/13/23 release (Dulcolax (bisacodyl)) constipation #30 tabs acetaminophen 325 mg tablet 650 mg (2 x 325 mg) PO Q6H PRN 08/02/23 (Tylenol) pain #60 tabs acetaminophen 325 mg tablet 650 mg (2 x 325 mg) PO Q6H PRN 08/07/23 (Tylenol) fever or pain #60 tabs morphine 15 mg immediate release 15 mg PO Q8H PRN pain (scale score 04/27/24 tablet 7-10) #9 tabs Allergies Allergy/AdvReac Type Severity Reaction Status Date / Time penicillin V Allergy Unknown hives Verified 04/27/24 13:39 Seafood Allergy Unknown anaphylaxis Uncoded 04/27/24 13:39 Review of Systems Review of Systems: Constitutional: No fever, chills, fatigue, night sweats, weight changes ENT/Mouth: No ear pain, hearing loss, nasal congestion, sinus pain, rhinorrhea, sore throat Eyes: No eye pain, swelling, redness, vision changes, discharge Cardio: No chest pain, palpitations, GUZMAN, orthopnea, peripheral edema Pulm: No SOB, cough, sputum, wheezing, dyspnea, hemoptysis GI: No nausea, vomiting, hematemesis, abdominal pain, diarrhea, constipation, hematochezia, melena : No irregular bleeding, dysuria, frequency, urgency, hesitancy, hematuria, flank pain, urinary flow changes, urinary incontinence or retention MSK: No back pain, neck pain, joint pain, myalgias, +left elbow pain Skin: No lesions, rashes Neuro: No weakness, numbness, paresthesias, LOC, dizziness, headache Psych: No anxiety/panic, depression, SI/HI, AH/VH All other systems reviewed and are negative. [facility] Past Medical History Attestation statement: The following information was validated with the patient. Source: old records reviewed and nursing notes reviewed Medical History No pertinent past medical history Social History Social History Substance Use Type: Marijuana Advance Directives: No Advance Directives Information Provided: Yes Do you have a plan to hurt others: No Plan Physical Exam Vital Signs: Vital Signs: Last Vital Signs Temp 97.8 F 04/27/24 19:55 Pulse 87 04/27/24 19:55 Resp 14 04/27/24 19:55 BP 125/76 04/27/24 19:55 Pulse Ox 99 04/27/24 19:55 O2 Del Method Room Air 04/27/24 19:55 BMI result Body Mass Index 29.2 Hypertensive, vitals otherwise WNL General: Well appearing, in no acute distress. Skin: Warm, dry, intact. No rashes or lesions. Head: Normocephalic, atraumatic. No kaufman sign, no raccoon eyes. small area of ecchymosis to left forehead. No palpable hematoma or skull fracture. EENT: Hearing is intact b/l. Conjunctiva clear. PERRLA. EOM intact. Moist mucous membranes.? Bilateral TMs/EACs intact. No mastoid tenderness. Neck: No midline cervical spinous tenderness or step-off deformity. Full ROM intact to C-spine. Cardiac: Chest wall symmetric. RRR Lungs: Normal respiratory effort without accessory muscle use. CTA bilaterally Back: No midline spinous or paraspinal tenderness. No step off deformity. Ext: +noted swelling and ecchymoses to posterior left elbow primarily over olecranon. Diffusely tender to palpation. No palpable deformity or crepitus. Limited ROM of left elbow with pain on extension and flexion. 2+ radial/ulnar pulse intact. Sensation intact. Able to move all digits on left hand. Full ROM intact to left wrist. Full ROM intact to left shoulder. Neuro: AOx3. Normal speech. Ambulating with steady gait. Psych: Appropriate mood and affect. Responds appropriately to questions. Course Course Course Narrative: RME: 33-year-old female presents to ED for left elbow pain. Patient slipped on ice in front of her mom's house hit her head and fell onto her left elbow thing Stadol placed. Patient states no shoulder pain. Physical exam positive for left frontal ecchymosis and left elbow tenderness. X-rays imaging ordered. Vascular/nuero exam is intact. Reevaluation(s) Reevaluation #1: 1820 -- CT head/brain without intracranial bleed or skull fracture. CT cervical spine without fracture or subluxation. X-ray left elbow/ forearm showing tiny fracture fragment adjacent to the olecranon process of ulna. Additional probable fracture fragment is seen adjacent to the medial humeral epicondyle. > CT elbow ordered to further characterize fracture > medicated with oxycodone for pain control Of note there is an incidental finding on cervical spine CT showing mucosal thickening/attenuation surrounding the ossicles of the right tympanic cavity, mucosal thickening and secretions in the dependent portion of the right mastoid air cells. I did re-examine patient. She does not endorse any ear pain. No pain on manipulation of right auricle. Right EAC without erythema or edema. Right TM intact without effusion, erythema or bulging. There is no mastoid tenderness noted. no protrusion of the auricle. 1921 -- CT elbow shows mildly comminuted fracture involving the distal lateral humeral condyle in the region of the lateral collateral ligament. I did reach out to on-call ortho [facility]. After discussion with Dr. Ford, they agree with posterior long arm splint with outpatient ortho follow-up. > splint placed by myself and amy licensed nuclear control room operator. patient tolerated well. cms intact distally. can move all digits without pain. morphine sent to pharmacy for break trhough pain control. ortho referral provided. Patient has remained stable throughout ED visit today. Discussed worrisome signs and symptoms and when to return to the ED. All questions answered at this time. Patient is agreeable with disposition and stable for discharge. 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 Hypertensive, vitals are otherwise wnl. she is nontoxic appearing and in NAD. on exam, noted swelling and ecchymoses to posterior left elbow primarily over olecranon. Diffusely tender to palpation. No palpable deformity or crepitus. Limited ROM of left elbow with pain on extension and flexion. 2+ radial/ulnar pulse intact. Sensation intact. Able to move all digits on left hand. Full ROM intact to left wrist. Full ROM intact to left shoulder. Differential diagnosis includes elbow contusion v fracture, dislocation, sprain/strain. Concern for concussion. Unlikely TBI, intracranial bleed, mass, basilar skull fracture, CVA/TIA. Plan for imaging, pain control, and re-evaluation. Differential Diagnosis Differential Diagnoses: The differential diagnosis associated with the presentation includes as above. Admission/Observation not indicated. Independent Interpretation I performed an independent interpretation of an: Plain X-Ray and CT Scan Interpretation: CT head/brain without bleed or skull fracture CT cervical spine without fracture or subluxation X-ray left forearm/elbow showing tiny fracture fragment next to olecranon process CT elbow showing fracture of distal humeral condyl Radiology Impression Discussion of test interpretation with radiology: I have reviewed the radiologist's reading. Radiologist Impression: Procedure(s): XR elbow LT 2V Accession Number(s): [id number] cc: Keith Heath; Hiwot Avalos MD~ EXAMINATION: XR FOREARM 2 VIEWS LEFT, XR ELBOW 1-2 VIEWS LEFT HISTORY: fall COMPARISON: There are no prior studies available for comparison. FINDINGS: Four views of the left elbow and AP and lateral views of the left forearm are submitted. Osseous mineralization is normal. There is a tiny fracture fragment adjacent to the olecranon process of the ulna. An additional osseous density is seen adjacent to the medial humeral epicondyle, of uncertain donor site. The joint spaces are preserved. There is a joint effusion with elevation of the anterior and posterior fat pads. XR/XR elbow LT 2V IMPRESSION: Tiny fracture fragment adjacent to the olecranon process of the ulna. An additional probable fracture fragment is seen adjacent to the medial humeral epicondyle, uncertain donor site. Electronically signed by: Brian Ryan MD 04/27/2024 02:13 PM EST RP Procedure(s): XR forearm LT 2V Accession Number(s): [id number] cc: Keith Heath; Hiwot Avalos MD~ EXAMINATION: XR FOREARM 2 VIEWS LEFT, XR ELBOW 1-2 VIEWS LEFT HISTORY: fall COMPARISON: There are no prior studies available for comparison. FINDINGS: Four views of the left elbow and AP and lateral views of the left forearm are submitted. Osseous mineralization is normal. There is a tiny fracture fragment adjacent to the olecranon process of the ulna. An additional osseous density is seen adjacent to the medial humeral epicondyle, of uncertain donor site. The joint spaces are preserved. There is a joint effusion with elevation of the anterior and posterior fat pads. XR/XR forearm LT 2V IMPRESSION: Tiny fracture fragment adjacent to the olecranon process of the ulna. An additional probable fracture fragment is seen adjacent to the medial humeral epicondyle, uncertain donor site. Electronically signed by: Brian Ryan MD 04/27/2024 02:13 PM EST RP Procedure(s): XR shoulder LT min 2V Accession Number(s): [id number] cc: Keith Heath; Hiwot Avalos MD~ EXAMINATION: XR SHOULDER, LEFT CLINICAL INFORMATION: fall COMPARISON: None available. TECHNIQUE: AP external rotation, Grashey, scapular Y, and axillary views of the left shoulder. FINDINGS: Normal bone mineralization. No fracture, dislocation, or suspicious bone lesion. Normal alignment. The glenohumeral joint is normal. The AC joint is normal. There is a type II acromion. No undersurface spurring. The subacromial space is preserved. Remainder of the soft tissue and bony structures appear normal. XR/XR shoulder LT min 2V IMPRESSION: Normal left shoulder. Electronically signed by: Haider Langley MD 04/27/2024 02:12 PM [facility] Procedure(s): CT cervical spine wo IV con Accession Number(s): [id number] cc: Keith Heath; Hiwot Avalos MD~ Report Number: [id number]: Total DLP = 311.00 mGy-cm EXAMINATION: CT CERVICAL SPINE WITHOUT CONTRAST CLINICAL INFORMATION: Status post fall. COMPARISON: None available. TECHNIQUE: Contiguous axial images through the cervical spine using 3 mm collimation with bone and soft tissue algorithm. Sagittal and coronal reformatted images acquired. This CT examination was performed using dose optimization techniques as appropriate, variously including the following: *Automated exposure control *Adjustment of mA and/or kV according to patient size (this includes techniques or standardized protocols for targeted exams where dose is matched to indication/reason for exam; i.e. extremities or head) *Use of iterative reconstruction technique DLP: 311 mGy centimeter. FINDINGS: Craniocervical junction is intact. C1 is intact. C2 is intact. C3 is intact. C4 is intact. C5 is intact. C6 is intact. C7 is intact. There is no gross malalignment between the vertebral bodies or the facet joints. No prevertebral compartment hematoma. There is mucosal thickening/attenuation surrounding the ossicles of the right tympanic cavity. Mucosal thickening and secretions in the dependent portion of the right mastoid air cells. CT/CT cervical spine wo IV con IMPRESSION: No acute fracture or trauma-related listhesis. Inflammatory versus infectious processes versus cholesteatoma, right tympanic cavity/right mastoid air cells. Fleischner guidelines were followed. Electronically signed by: Dhaval Hankins MD 04/27/2024 02:14 PM EST RP Procedure(s): CT head/brain wo IV con Accession Number(s): [id number] cc: Keith Heath; Hiwot Avalos MD~ Report Number: [id number]: Total DLP = 641.00 mGy-cm EXAMINATION: CT HEAD WITHOUT CONTRAST CLINICAL INFORMATION: Fall, head strike. COMPARISON: None available. TECHNIQUE: Contiguous axial imaging was performed from the skull base to vertex without intravenous administration of contrast. This CT examination was performed using dose optimization techniques as appropriate, variously including the following: *Automated exposure control *Adjustment of mA and/or kV according to patient size (this includes techniques or standardized protocols for targeted exams where dose is matched to indication/reason for exam; i.e. extremities or head) *Use of iterative reconstruction technique FINDINGS: There is no evidence of intracranial hemorrhage or extra-axial fluid collection. There is no mass effect, or edema. No CT evidence of acute territorial infarct. Ventricles, sulci, and cisterns are normal in size and configuration for patient age. No hydrocephalus. No midline shift. Negative hyperdense MCA sign. Negative insular ribbon sign. No white matter abnormalities. Normal pituitary. Globes and orbital contents image normally. No extracranial soft tissue abnormalities. The paranasal sinuses, mastoid air cells, and tympanic cavities are normally aerated. No suspicious bony abnormalities. There are no acute fractures evident. CT/CT head/brain wo IV con IMPRESSION: No acute intracranial abnormality. Electronically signed by: Haider Langley MD 04/27/2024 02:15 PM EST RP Procedure(s): CT elbow LT wo IV con Accession Number(s): [id number] cc: Hiwot Avalos MD; Kendal Anaya~ Report Number: [id number]: Total DLP = 126.00 mGy-cm CLINICAL HISTORY: fall onto elbow, further characterize fracture Noncontrast CT, left elbow Indication: Fracture Comparison: Radiographs same day Findings: There is a mildly comminuted fracture involving the articular surface of the distal lateral humeral condyle. No significant joint effusion. Prominent surrounding edema. The proximal radius and proximal ulna are intact. Impression: Mildly comminuted fracture involving the distal lateral femoral condyle in the region of the lateral collateral ligament origin. This document has been electronically signed by: Lenin Dubon MD on 04/27/2024 18:26:37 Independent Historian Clinical information obtained from an independent historian. History obtained from or confirmed by: Spouse External Record Review External record reviewed: Inpatient record Prescription Management I considered prescription management with: Pain Medication (morphine) Social Determinants Patient?s care significantly limited by Social Determinants of Health including: Other Social Determinant of Health Procedures Orthopedic Splinting/Casting Injury #1: Side: left Upper Extremity Injury Location: elbow Upper Extremity Immobilizer: sling/shoulder immobilizer and posterior splint Critical Care Time Critical Care Time Critical Care Time: No Discharge Plan Discharge Clinical Impression: Closed fracture lateral condyle humerus Patient Disposition: Home, Self-Care Instructions: Elbow Fracture (ED), How to Use a Sling (ED), Shoulder Immobilizer (ED) Additional Instructions: You have been evaluated in the Emergency Department today for left elbow pain after a slip and fall. Your evaluation showed a fracture of your left elbow. I have placed your elbow in a splint today. Avoid getting the splint wet. We have provided a sling for you to use while your elbow heals. Please rest, ice, and elevate your left elbow to help with swelling. I recommend you take 600mg ibuprofen every 6 hours or tylenol 650mg every 6 hours as needed for pain. If needed, you can alternate these medications so that you take one medication every 3 hours. For example, at noon take ibuprofen, then at 3pm take Tylenol, then at 6pm take ibuprofen.? Please take morphine as directed as necessary for breakthrough pain. Please follow-up with an orthopedic surgeon in 1 week. You have been provided with a referral. Call them to make an appointment, they will not call you. Return to the Emergency Department if you experience worsening pain, numbness, tingling, change of color in your fingers, or any other concerning symptoms. Noncontrast CT, left elbow Indication: Fracture Comparison: Radiographs same day Findings: There is a mildly comminuted fracture involving the articular surface of the distal lateral humeral condyle. No significant joint effusion. Prominent surrounding edema. The proximal radius and proximal ulna are intact. Impression: Mildly comminuted fracture involving the distal lateral humeral condyle in the region of the lateral collateral ligament origin. Prescriptions: New morphine 15 mg tablet 15 mg PO Q8H PRN (Reason: pain (scale score 7-10)) Qty: 9 0RF Rx Instructions: Partial Fill upon patient request. No Action nitrofurantoin monohyd/m-cryst [Macrobid] 100 mg capsule 100 mg PO Q12H 7 Days Qty: 14 0RF Rx Instructions: must administer with a meal/food ondansetron HCl 4 mg tablet 4 mg PO Q6H PRN (Reason: nausea and vomiting) Qty: 14 0RF bisacodyl [Dulcolax (bisacodyl)] 5 mg tablet,delayed release (DR/EC) 10 mg PO BEDTIME PRN (Reason: constipation) Qty: 30 0RF acetaminophen [Tylenol] 325 mg tablet 650 mg PO Q6H PRN (Reason: pain) Qty: 60 0RF acetaminophen [Tylenol] 325 mg tablet 650 mg PO Q6H PRN (Reason: fever or pain) Qty: 60 0RF Referrals: [facility] Surgeons [Provider Group] - 5 days (Mildly comminuted fracture involving the distal lateral humeral condyle in the region of the lateral collateral ligament origin.) Hiwot Avalos MD [Primary Care Provider] - Stand Alone Forms: Work/School Release Interventions: ED Discharge Assessment Last Done: 04/27/24 19:55 Discharge Date/Time: 04/27/24 19:56 Print Language: Lao
[2024-04-27] MEDS: oxyCODONE HCl Immed Release 5 MG TABLET PO (17:33)
[2024-04-27 18:20] VITALS: BP 125/76; PULSE 87; RESP 14; TEMP 36.6; O2SAT 99
--- OUTSIDE RECORDS SUMMARY | 2024-04-27 19:37 | XMS_ITS | Clinical Summary ---
Author Organization [facility] Address [address] [place] [id number] Care Team Providers Care Pick Up Man Name Role Phone Hiwot Avalos MD Primary Care Provider Medical History Medical History Date Comments Asthma 07/29/2017 DX:Asthma Family History Medical History Relation Name Comments No Known Problems Brother Asthma Father Hypertension Father Diabetes Maternal Grandfather IDDM Diabetes Maternal Grandmother d Asthma Mother Hypertension Mother No Known Problems Paternal Grandfather No Known Problems Paternal Grandmother Asthma Sister Relation Name Status Comments Brother Father Maternal Grandfather Maternal Grandmother Mother Paternal Grandfather Paternal Grandmother Sister Social History Tobacco Use Types Packs/Day Years Used Date Smoking Tobacco: Former Smokeless Tobacco: Current Comments Unknown Sex and Gender Information Value Date Recorded Sex Assigned at Not on file Legal Sex Female 3:58 AM EST Gender Identity Not on file Sexual Orientation Not on file Obstetrics History Plan of Treatment Health Maintenance Due Date Last Done Comments DTaP,Tdap,and Td Vaccines (1 - Tdap) 07/05/2007 Hepatitis B Vaccines (1 of 3 - 19+ 3-dose series) 07/05/2007 Cervical Cancer Screening: P ap Smear 08/09/2020 08/09/2017, 08/09/2017 Depression Screening 03/30/2023 HIV Screening 03/30/2023 Hepatitis C Screening 03/30/2023 Social Influencers of Health Screening 03/30/2023 COVID-19 Vaccine ( - 2023-2 5 season) 2023 Influenza Vaccine (#1) 2023 HIB Vaccines Aged Out No longer eligi ble based on patient's age to complete this topic HPV Vaccines Aged Out No longer eligi ble based on patient's age to complete this topic Hepatitis A Vaccines Aged Out No long er eligible based on patient's age to complete this topic IPV Vaccines Aged Out No longer eligi ble based on patient's age to complete this topic MMR Vaccines Aged Out No longer eligi ble based on patient's age to complete this topic Meningococcal ACWY Vaccine Aged Out N o longer eligible based on patient's age to complete this topic Meningococcal B Vacine Aged Out No lo nger eligible based on patient's age to complete this topic Pneumococcal Vaccine: Pediatrics (0 to 5 Years) and At-Risk Patients (6 to 64 Years) Aged Out No longer eligible b ased on patient's age to complete this topic RSV Immunization Patients Under 20 months Aged Out No longer eligible b ased on patient's age to complete this topic Varicella Vaccines Aged Out No longer eligible based on patient's age to complete this topic Procedures Procedure Name Priority Date/Time Associated Diagnosis Comments PAP SMEAR Routine 08/09/2017 from Last 3 Months or Most Recently Relevant to Health Maintenance Results * Pap smear (08/09/2017) 08/09/2017 Narrative HISTORICAL TESTING LAB RESULTING AGENCY - 08/19/2017 9:08 AM EDT [id number] THINPREP PAP, IMAGED: ATYPICAL SQUAMOUS CELLS OF UNDETERMINED SIGNIFICANCE (ASCUS) ??. NELLY IS PRESENT. CLUE CELLS ARE PRESENT. RESULTS OF APTIMA HIGH RISK HPV ASSAY: ? POSITIVE ?(SEROTYPES 16,18,31,33,35, 39,45,51,52,56,58,59,66,68) JUAN TAYLOR(ASCP) (CASE SCREENED 08 11 2017) VIOLETA PEPPER M.D., PATHOLOGIST (CASE ELECTRONICALLY SIGNED 08 18 2017) ADEQUACY: SATISFACTORY. ENDOCERVICAL/TRANSFORMATION ZONE COMPONENT PRESENT. SOURCE: THINPREP PAP HPV IF ASCUS, CERVICAL, IMAGED: CLINICAL INFORMATION: HPV IF DIAGNOSIS OF ASCUS. Z12.4, LMP 06/08/2017, us Gabrielle Sandoval CNM LAB CYTOLOGY ORDERABLES Final Result HISTORICAL TESTING LAB RESULTING AGENCY from Last 3 Months or Most Recently Relevant to Health Maintenance Care Teams Pick Up Man Relationship Specialty Start Date End Date Hiwot Avalos MD [address] [place] [address] PCP - General Internal Medicine 07/28/17
--- NOTE | 2024-04-27 19:47 | MHC.EDTECH ---
This tech took over care of patient at 1845, assisted provider with a posterior long arm splint, applied a sling,pt tolerated well
[2024-04-27 19:55] VITALS: BP 125/76; PULSE 87; RESP 14; TEMP 36.6; O2SAT 99
== END 2024-04-27 19:56 | disposition home or self-care (01) ==
PROVIDERS: Emergency Provider Student in an Organized Health Care Education/Training Program; PCP Internal Medicine
DX: S42.452A Displaced fracture of lateral condyle of left humerus, initial encounter for closed fracture (principal); W00.0XXA Fall on same level due to ice and snow, initial encounter; Y93.01 Activity, walking, marching and hiking; Y92.89 Other specified places as the place of occurrence of the external cause; Y99.9 Unspecified external cause status
CPT/HCPCS: 29105; 70450; 72125; 73030; 73070; 73090; 73200; 99283; 99284

== ENCOUNTER → 2024-04-27 13:39 | Outpatient (BNV) | payer MEDICAID, SELFPAY | PROVIDERS: PCP Internal Medicine; Visit Provider Radiology Diagnostic Radiology | DX: S19.9XXA Unspecified injury of neck, initial encounter (principal); S52.612A Displaced fracture of left ulna styloid process, initial encounter for closed fracture; S09.90XA Unspecified injury of head, initial encounter; S49.92XA Unspecified injury of left shoulder and upper arm, initial encounter | CPT/HCPCS: 70450; 72125; 73030; 73070; 73090 ==

== ENCOUNTER 2024-05-15 09:31 | Outpatient (REF) | payer MEDICAID, SELFPAY | END 2024-05-15 09:32 | disposition home or self-care (01) | LOC: HO.HOSX 09:31 | PROVIDERS: Visit Provider Physician Assistant | DX: Z13.89 Encounter for screening for other disorder (principal) ==

== ENCOUNTER 2024-05-17 10:00 | Outpatient (AMB) | payer MEDICAID, SELFPAY ==
--- NOTE | 2024-05-17 10:02 | A.OFFVIS_ITS ---
Vital Signs 05/17/24 10:03 Height 5 ft 2 in Weight 159 lb BMI 29.1 Intake Visit Reasons: FC - ED f/u left elbow fx, DOI 04/27/24 Intake Note: Jania is a 33 year old 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 female who presents today as a new patient for a fracture care visit of her left elbow fracture s/p trip and fall DOI: 04/27/24. Per ED note patient reports slipping on ice in front of her mother's house and landing directly onto her left elbow. Currently her pain presents with movement of her arm and is located at her elbow area. No numbness or tingling. She takes Tylenol as needed for her pain. Allergies penicillin V Allergy (Unknown, Verified 05/17/24 10:05) hives Seafood Allergy (Unknown, Uncoded 05/17/24 10:05) anaphylaxis Medication List - Last Reconciled 05/17/24 by Raffi Lacey PA-C acetaminophen (Tylenol) 650 mg (2 x 325 mg) PO Q6H PRN HPI HPI FC - ED f/u left elbow fx, DOI 04/27/24: Details: 33-year-old female presents to the office today for an injury she sustained to her left elbow on 04/27/2024. She states she slipped and fell landing on her left elbow. Her partner who is in the room states the shoulder was dislocated and he pulled on it to reduce it. She was seen in the emergency department where x-rays and a CT scan were obtained and she was placed in a splint and a sling and referred to our office for ortho eval. 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 No open wounds swelling or ecchymosis. I can passively bring her out to extension lacking approximately 5-10 degrees. No pain with supination pronation. No tenderness over the medial or lateral epicondyle. Mild tenderness over the olecranon. Neurovascularly intact. Office Procedures AMB Fracture Care Fracture Billing Code: Fracture Billing Code Results Reviewed Results Reviewed: XR elbow LT 2V IMPRESSION: Tiny fracture fragment adjacent to the olecranon process of the ulna. An additional probable fracture fragment is seen adjacent to the medial humeral epicondyle, uncertain donor site. CT Impression: Mildly comminuted fracture involving the distal lateral epicondyle in the region of the lateral collateral ligament origin. Assessment & Plan Assessment & Plan (1) Dislocation of left elbow: Code(s): S53.105A - Unspecified dislocation of left ulnohumeral joint, initial encounter Category: Medical (2) Avulsion fracture: Code(s): T14.8XXA - Other injury of unspecified body region, initial encounter Category: Medical Plan We will work on gentle range of motion in the office today. I instructed her to let the left arm hang in resting position to help with range of motion. She was given a prescription for ibuprofen to help with the inflammation and take 3 times a day. She was also given a 1 time prescription for tramadol to take at bedtime. I did put in a prescription for physical therapy to begin working on gentle range of motion. She will see me back in 4-6 weeks, sooner if needed. Orders: Orders OT Evaluation and Treatment Today S53.105A - Unspecified dislocation of left ulnohumeral joint, initial encounter Medications: New tramadol 50 mg PO BEDTIME 7 tabs 0RF 7 days ibuprofen 800 mg PO Q8H PRN 90 tabs 3RF pain 30 days S52.209D - Unspecified fracture of shaft of unspecified ulna, subsequent encounter for closed fracture with routine healing Discontinued nitrofurantoin monohyd/m-cryst 100 mg (Macrobid) must administer with a meal/food Discontinued Reason: Patient no longer taking 100 mg PO Q12H 7 days 14 caps 0RF ondansetron HCl Discontinued Reason: Patient no longer taking 4 mg PO Q6H PRN 14 tabs 0RF nausea and vomiting bisacodyl (Dulcolax (bisacodyl)) Discontinued Reason: Patient no longer taking 10 mg (2 x 5 mg) PO BEDTIME PRN 30 tabs 0RF constipation morphine Partial Fill upon patient request. Discontinued Reason: Patient no longer taking 15 mg PO Q8H PRN 9 tabs 0RF pain (scale score 7-10) acetaminophen (Tylenol) Discontinued Reason: Patient no longer taking 650 mg (2 x 325 mg) PO Q6H PRN 60 tabs 0RF pain Coding Level of Care Code New Pt Level 3 (18208) Complex EM visit Add On G2211 Diagnoses Dislocation of left elbow S53.105A Avulsion fracture T14.8XXA CPT Codes Fracture Care - Fracture Billing Code: Fracture Billing Code ([id number])
[2024-05-17 10:03] VITALS: BMI 29.1
== END 2024-05-17 11:07 | disposition home or self-care (01) ==
LOC: HO.HOS 10:01
PROVIDERS: Visit Provider Physician Assistant
DX: S53.105A Unspecified dislocation of left ulnohumeral joint, initial encounter (principal); T14.8XXA Other injury of unspecified body region, initial encounter
CPT/HCPCS: 99204

== ENCOUNTER → 2024-05-17 10:00 | Outpatient (BNVA) | payer MEDICAID, SELFPAY | PROVIDERS: Visit Provider Physician Assistant | DX: S53.105A Unspecified dislocation of left ulnohumeral joint, initial encounter (principal) | CPT/HCPCS: 99212 ==

== ENCOUNTER 2024-09-27 14:49 | Outpatient (REF) | payer MEDICAID, SELFPAY ==
--- OUTSIDE RECORDS SUMMARY | 2024-09-27 15:32 | XMS_ITS | Clinical Summary ---
Author Organization [employer] [facility] Address [address] [place] [address] Care Team Providers Care Facilities Painter Name Role Phone Unavailable Primary Care Provider Unavailabl e Allergies Active Allergy Reactions Criticality Noted Date Comments Penicillins Hives High 06/14/2024 Shellfish-Derived Products Anaphylaxis High 06/15/19 25 Medications fluticasone (Flonase) 50 MCG/ACT nasal sprayIndication s:Cough in adult patient Administer 1 spray into each nostril Once per day. Shake gently. Before first use, prime pump. After use, clean tip and replace cap. 16 g 2 5 06/15/19 26 Active clotrimazole (Lotrimin) 1 % cream Apply topically 2 times daily for 28 days. 90 g 2 5 10/08/19 25 Active Active Problems No known active problems Encounters Date Type Department Care Team Description 09/27/2024 2:40 PM EDT Office Visit [facility] [address] [place] [phone] Secondary amenorrhea (Primary Dx); Possible 09/27/2024 Travel 09/11/2024 Telephone [facility] [address] [place] [phone] Milana Mckeon MA CHARTPREP 09/09/2024 12:00 PM EDT Office Visit [facility] [address] [address] Kenji Robles MD Tinea pedis of both feet (Primary Dx) 09/09/2024 Travel from Last 3 Months Social History Tobacco Use Types Packs/Day Years Used Date Smoking Tobacco: Every Day Cigarettes Tobacco Cessation:Ready to Q uit: Not Asked; Counseling Given: Not Answered Comments:Smokes 5-6 cigarettes per day Alcohol Use Standard Drinks/Week Comments Never 0 (1 standard drink = 0.6 oz pur e alcohol) Alcohol Answer Date Recorded How often do you have a drink containing alcohol ? 0 09/13/2024 How many drinks containing a lcohol do you have on a typical day when you are drinking? 0 09/13/2024 How often do you have six or more drinks on one occasion? 0 09/13/2024 Comments Unknown Sex and Gender Information Value Date Recorded Sex Assigned at Female 06/14/2024 9:13 AM EDT Legal Sex Female 3:46 PM EDT Gender Identity Female 06/14/2024 9:13 AM EDT Sexual Orientation Choose not to disclose 2024 9:24 AM EDT Sexual Orientation Straight 06/14/2024 9: 24 AM EDT Last Filed Vital Signs Vital Sign Reading Time Taken Comments Blood Pressure 116/74 09/27/2024 2:21 PM EDT Pulse 73 09/27/2024 2:21 PM EDT Temperature 36.8 C (98.2 F) 09/27/2024 2:21 PM EDT Respiratory Rate 18 09/27/2024 2:21 PM EDT Oxygen Saturation 99% 09/27/2024 2:21 PM EDT Inhaled Oxygen Concentration - - Weight 68 kg (150 lb) 09/27/2024 2:21 PM EDT Height 157.5 cm (5' 2 ) 09/09/2024 11:51 AM EDT Body Mass Index 27.44 09/09/2024 11:51 AM EDT Plan of Treatment Health Maintenance Due Date Last Done Comments Depression Screening 1988 HIV Screening 1988 Lipid Panel 1988 SDOH Screening 1988 Disability Screening 1988 Family Planning (PISQ) 07/05/2003 HPV Vaccines (1 - 3-dose series) 07/05/2003 Hepatitis C Screening 2006 Hepatitis B Vaccines (1 of 3 - 19+ 3-dose series) 07/05/2007 Pneumococcal Vaccine: Pediatrics (0 to 5 Years) and At-Risk Patients (6 to 49) Years (1 of 2 - PCV) 07/05/2007 Pap Smear 2009 Cervical Cancer Screening 2018 HPV/Cotest 2018 COVID-19 Vaccine ( season) 2023 Influenza Vaccine (#1) 2024 , 11/30/2022, 11/30/2022, Additional history exists Alcohol/Substance Use Screening 09/13/2025 09/13/2024 Tobacco Screening 09/13/2025 09/13/2024 DTaP/Tdap/Td Vaccines (4 - Td or Tdap) 01/03/2034 01/04/2024, 01/25/2023, 08/01/2019 Zoster Vaccines (1 of 2) 2038 RSV Patients and Patients Aged 60 years or older (1 - 1-dose 75+ series) 07/05/2063 HIB Vaccines Aged Out No longer eligi ble based on patient's age to complete this topic Hepatitis A Vaccines Aged Out No long er eligible based on patient's age to complete this topic IPV Vaccines Aged Out No longer eligi ble based on patient's age to complete this topic Meningococcal B Vaccine Aged Out No l onger eligible based on patient's age to complete this topic Meningococcal Vaccine Aged Out No brent william eligible based on patient's age to complete this topic RSV under 20 months Aged Out No longe r eligible based on patient's age to complete this topic Rotavirus Vaccines Aged Out No longer eligible based on patient's age to complete this topic Procedures Procedure Name Priority Date/Time Associated Diagnosis Comments POCT , URINE Routine 09/27/2024 2:22 PM EDT Possible from Last 3 Months Results * POCT , urine manually resulted (09/27/2024 2:22 PM EDT) Preg Test, Ur Negative Negative, Indeterminate, None Detected, Invalid, Specimen unsatisfactory for evaluation, Weakly Positive, 2+ Urine 09/27/2024 2:22 PM EDT Beth Galicia MD POINT OF CARE TEST ENTER/EDIT ORDERABLES Final Result from Last 3 Months Insurance [facility] C3
--- OUTSIDE RECORDS SUMMARY | 2024-09-27 15:32 | XMS_ITS | Clinical Summary ---
Author Organization [facility] Address [address] [place] [id number] Care Team Providers Care Rewards Consultant Name Role Phone Hiwot Avalos MD Primary [...] Screening: P ap Smear 08/09/2020 08/09/2017, 08/09/2017 HIV Screening 03/30/2023 Hepatitis C Screening 03/30/2023 Social Influencers of Health Screening 03/30/2023 COVID-19 Vaccine (1 - 2023-2 5 season) 2023 Depression Screening 03/01/2024 Influenza Vaccine (#1) 2024 HIB Vaccines Aged Out No longer eligi [...] 5 Years) and At-Risk Patients (6 to 49 Years) Aged Out No longer eligible b [...] RESULTING AGENCY - 08/19/2017 9:08 AM EDT [id number] THINPREP PAP, IMAGED: ATYPICAL SQUAMOUS CELLS OF UNDETERMINED SIGNIFICANCE (ASCUS) . NELLY IS PRESENT. CLUE CELLS ARE PRESENT. RESULTS OF APTIMA HIGH RISK HPV ASSAY: POSITIVE (SEROTYPES 16,18,31,33,35, 39,45,51,52,56,58,59,66,68) JASMINE BROWN, JUAN(ASCP) (CASE SCREENED 08 11 2017) VIOLETA PEPPER [...] Recently Relevant to Health Maintenance Care Teams Rewards Consultant Relationship Specialty Start Date End Date Hiwot Avalos MD [address] [facility] [place] [address] PCP - General Internal Medicine 07/28/17
== END 2024-09-27 14:50 | disposition home or self-care (01) ==
LOC: HO.HHCL 14:49
PROVIDERS: Internal Medicine; PCP Physician Assistant; Visit Provider Physician Assistant
DX: N91.1 Secondary amenorrhea (principal)
CPT/HCPCS: 36415; 84443; 84702

== ENCOUNTER 2024-10-27 08:46 | Emergency (ER) | payer MEDICAID, SELFPAY ==
[2024-10-27 08:50] VITALS: BP 140/79; BP 148/90; PULSE 76; PULSE 98; RESP 16; TEMP 36.7; O2SAT 100; O2SAT 99; BMI 25.2
[2024-10-27 08:55] VITALS: BP 145/80; PULSE 84; RESP 16; O2SAT 99
--- NOTE | 2024-10-27 08:56 | ED_ITS ---
HPI - Overdose General Chief Complaint: Overdose Stated Complaint: SUBSTANCE USE Time Seen by Provider: 10/27/24 08:56 Source: EMS Mode of arrival: EMS Limitations: no limitations History of Present Illness ED Provider: HPI Narrative: 34-year-old woman presented via EMS for reports of overdose, patient states that she was going to smoke crack however she did not know that her friend also smokes fentanyl on so she became unresponsive and boyfriend gave her Narcan 4 mg intranasal, patient states that she is not interested in detox, and I was asked to see her because she although conversation no cooperative did not want to be in the hospital and wanted to sign out AMA. She was alert oriented ambulatory. Related Data Previous Rx's ?Medication ?Instructions ?Recorded acetaminophen 325 mg tablet 650 mg (2 x 325 mg) PO Q6H PRN 08/07/23 (Tylenol) fever or pain #60 tabs ibuprofen 800 mg tablet 800 mg PO Q8H PRN pain 30 da ys #90 05/17/24 tabs tramadol 50 mg tablet 50 mg PO BEDTIME 7 days #7 t abs 05/17/24 Allergies Allergy/AdvReac Type Severity Reaction Status Date / Time penicillin V Allergy Unknown hives Verified 10/27/24 08:52 Seafood Allergy Unknown anaphylaxis Uncoded 05/17/24 10:05 Review of Systems Constitutional: Constitutional: Reports as per HPI [facility] Past Medical History Medical History No pertinent past medical history Social History Social History (Updated 05/17/24 @ 10:06 by TJ Cheng) Patient Tobacco Use Status: Current everyday Tobacco user Smoked in Last 30 Days: Yes Use of substances other than those prescribed or required for medical reasons: Yes Substance Use Type: Crack/Cocaine and Opiates Advance Directives: No Advance Directives Information Provided: No Current occupational status: employed 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, 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 Physical Exam Vital Signs: Vital Signs: Last Vital Signs Temp 98.0 F 10/27/24 09:02 Pulse 84 10/27/24 09:02 Resp 16 10/27/24 09:02 BP 145/80 H 10/27/24 09:02 Pulse Ox 99 10/27/24 09:02 O2 Del Method Room Air 08/29/25 09:02 BMI result Body Mass Index 25.2 Const: Other: Sitting up in the gurney, speaking full sentences not in respiratory distress, does not appear to be sedated No wheezing no rales no stridor appreciated She is ambulatory, moving upper and lower extremities symmetrically, no facial asymmetry noted Medications Administered Discontinued Medications Generic Name Dose Route Start Last Admin Trade Name Corinne PRN Reason Stop Dose Admin Naloxone HCl 8 mg 10/27/24 08:57 10/27/24 09:04 Naloxone Hcl Nasal Take Home 4 Mg [place] NOSTRILALT 10/27/24 08:58 Not Given ONCE ONE Medical Decision Making Medical Decision Making MDM Narrative: Patient evaluated brought in by EMS, was given Narcan intranasal and states did not want to come to the hospital, she is alert oriented, has capacity to make decisions, I offered detox, we will discharge with Narcan kit, we will discharge no reason for AMA. Differential Diagnosis Differential Diagnoses: The differential diagnosis associated with the presentation includes (Trauma, overdose, polysubstance use disorder) Independent Historian Clinical information obtained from an independent historian. History obtained from or confirmed by: EMS Tests considered The following testing was considered but not selected: EKG, CT brain Chronic Conditions Patient?s care impacted by: Other (Polysubstance use disorder) Discharge Plan Discharge Clinical Impression: Drug overdose Patient Disposition: Home, Self-Care Additional Instructions: Overdose You were seen in our Emergency Department for an overdose today. You received narcan in order to reverse the effects of overdose. Narcan only lasts about 45 min to 1 hour in the system. You may have been given narcan to take home with you today, please keep it near you if you are going to use again, so others can use it if needed.? The number one risk for fatal overdose is using alone? [employer] is a 21/09 hotline where you can be on the phone with someone while you use, and they can call for help if they suspect an overdose: [phone] Things to look out for when you leave include severe vomiting or diarrhea, headaches, muscle cramps, fever, coughing, chest pain, or if you feel so short of breath you cannot walk to the bathroom. Please seek care and return any time for worsening symptoms.? You may have been provided with safer injection?items, please take time to take care of YOU and your health. Use new supplies whenever possible to lessen the chances of infections and other illnesses.? If you need more supplies, please go [facility],? [address], [place] you can call or text to coordinate delivery of safer supplies. If you decide you want to stop or cut down on how much you?re using, please call the numbers on the list provided to you or you can come to our outpatient Addiction Treatment office [facility] (M-F 9am-5p) [address] [place] [address], [address] [place], [place]. [phone] Prescriptions: No Action acetaminophen [Tylenol] 325 mg tablet 650 mg PO Q6H PRN (Reason: fever or pain) Qty: 60 0RF ibuprofen 800 mg tablet 800 mg PO Q8H PRN (Reason: pain) 30 Days Qty: 90 3RF tramadol 50 mg tablet 50 mg PO BEDTIME 7 Days Qty: 7 0RF Interventions: ED Discharge Assessment Last Done: 10/27/24 09:02 Print Language: Welsh
--- NOTE | 2024-10-27 09:01 | PC.NURSE ---
Patient alert and oriented requesting to be discharged. Detox and narcan offered and patient refused. Patient states has narcan at home. Ambulated out the department with a steady gait.
[2024-10-27 09:02] VITALS: BP 145/80; PULSE 84; RESP 16; TEMP 36.7; O2SAT 99
--- OUTSIDE RECORDS SUMMARY | 2024-10-27 09:56 | XMS_ITS | Clinical Summary ---
Author Organization [facility] Address [address] [place] [id number] Care Team Providers Care Cuffing Machine Operator Name Role Phone Hiwot Avalos MD Primary [...] RESULTING AGENCY - 08/19/2017 9:08 AM EDT [id number] THINPREP PAP, IMAGED: ATYPICAL SQUAMOUS CELLS OF [...] Recently Relevant to Health Maintenance Care Teams Cuffing Machine Operator Relationship Specialty Start Date End Date Hiwot Avalos MD [address] [facility] [place] [address] PCP - General Internal Medicine 07/28/17
--- OUTSIDE RECORDS SUMMARY | 2024-10-27 09:56 | XMS_ITS | Clinical Summary ---
Author Organization [facility] [employer] [facility] Address [address] [place] [address] Care Team Providers Care Airline Security Representative Name Role Phone Unavailable Primary Care Provider [...] 90 g 2 5 10/08/19 25 Active Problems No known active problems Encounters Date Type Department Care Team Description 10/05/2024 Orders Only [facility] [address] [place] [address] Beth Galicia MD Secondary amenorrhea (Primary Dx) 10/05/2024 Results Follow-Up [facility] [address] [place] [address] Beth Galicia MD POCT , urine manually resulted, hCG, Total, Quantitative, TSH W/Reflex to FT4 09/27/2024 2:40 PM EDT Office Visit [facility] [address] [place] [phone] Beth Galicia MD Secondary amenorrhea (Primary Dx); Possible 09/27/2024 Travel 09/11/[address] [facility] [address] [place] [phone] Milana Mckeon [place] CHARTPREP 09/09/2024 12:00 PM EDT Office Visit [facility] [address] [phone] Kenji Robles MD Tinea pedis of both [...] Cancer Screening 2018 HPV/Cotest 2018 COVID-19 Vaccine (1 - 2023- season) 2023 Influenza Vaccine (#1) 2024 , [...] Procedure Name Priority Date/Time Associated Diagnosis Comments TSH W/REFLEX TO FT4 Routine 09/27/2024 2 :53 PM EDT Secondary amenorrhea HCG, TOTAL, QN Routine 09/27/2024 2:53 PM EDT Secondary amenorrhea POCT , URINE Routine 09/27/2024 2:22 PM EDT Possible from Last 3 Months Results * TSH W/Reflex to FT4 (09/27/2024 2:53 PM EDT) TSH reflex Free T4 1.25 0.32 - 4.0 uIU/mL [facility] Blood Venous blood specimen / Unknown 09/27/2024 2:53 PM EDT 09/27/2024 3:57 PM EDT us Beth Galicia MD LAB BLOOD ORDERABLES Final Re sult Performing Organization Address [facility]/ZIP Co de Phone Number [facility] [address] [place] [phone] * hCG, Total, Quantitative (09/27/2024 2:53 PM EDT) HCG Quantitative <2 mIU/mL [facility] Comment:Weeks post LMP Appro ximate hCG(Last Menstrual Period) Range (mIU/ml)3 - 4 weeks 9 - 1304 - 5 weeks 75 - 2,6005 - 6 weeks 850 - 20,8006 - 7 weeks 4000 - 100,2007 - 12 weeks 11,500 - 289,53573 - 16 weeks 18,300 - 137,77069 - 29 weeks (2nd trimester) 1,400 - 53,82808 - 41 weeks (3rd trimester) 940 - 60,000The Garcia B- hCG assay is used for the early detection ofpregnancy; it cannot be used to diagnose any conditionunrelated to . If a B-hCG level is not supportedby the clinical evidence, results should be confirmed by analternative method (qualitative urine hCG, for example). Blood Venous blood specimen / Unknown 09/27/2024 2:53 PM EDT 09/27/2024 3:57 PM EDT us Beth Galicia MD LAB BLOOD ORDERABLES Final Re sult Performing Organization Address City/[facility]/ZIP Co de Phone Number [facility] [address] [place] [address] [place] [phone] * POCT , urine manually resulted (09/27/2024 2:22 PM EDT) Preg Test, Ur Negative Negative, Indeterminate, None Detected, Invalid, Specimen unsatisfactory for evaluation, Weakly Positive, 2+ Urine 09/27/2024 2:22 PM EDT Beth Galicia MD POINT OF CARE TEST ENTER/EDIT ORDERABLES Final Result from Last 3 Months Insurance [facility] C3
== END 2024-10-27 09:05 | disposition home or self-care (01) ==
PROVIDERS: Emergency Provider Emergency Medicine; PCP Physician Assistant
DX: T40.411A Poisoning by fentanyl or fentanyl analogs, accidental (unintentional), initial encounter (principal); Y92.9 Unspecified place or not applicable
CPT/HCPCS: 99285